=== PATIENT | female | born 1950 | race Caucasian/White ===

== ENCOUNTER → 2016-09-29 | Outpatient (REF) | payer MEDICARE, BC, OTHER | LOC: M SFHCPLAZ 16:57 | PROVIDERS: ATTEND Internal Medicine | DX: R30.0 Dysuria (principal); Z23 Encounter for immunization | CPT/HCPCS: 81001; 87086; 90732; G0009 ==

== ENCOUNTER → 2016-12-09 | Outpatient (CLI) | payer MEDICARE, BC, OTHER ==
--- NOTE | 2016-12-09 09:18 | REP ---
MAXILLOFACIAL CT WITHOUT CONTRAST: HISTORY: Subacute sinusitis. COMPARISON: 12/20/2009 The sinuses are clear. The osteomeatal units are patent. The middle and inferior nasal turbinates are partially paradoxical. There is haim bullosa of the left middle nasal turbinate. The cribriform plate, medial mendez of the orbits and optic canals are intact. The carotid canals form a segment of the posterolateral mendez of the sphenoid sinus. The sphenoid sinus septum inserts into the right internal carotid canal wall. IMPRESSION: There is no acute or chronic sinusitis. Signed by Teo Neely MD 12/09/2016 09:30 A
== END ==
LOC: M RAD 08:19
PROVIDERS: ATTEND Physician Assistant Medical
DX: J01.10 Acute frontal sinusitis, unspecified (principal)

== ENCOUNTER → 2016-12-15 | Outpatient (CLI) | payer MEDICARE, BC, OTHER ==
--- NOTE | 2016-12-15 10:54 | REP ---
Chest x-ray: Two views. History: Pneumonia. Comparison chest x-ray: August 15, 2014. Findings: The lungs are well inflated. No infiltrate is seen. Heart is borderline unchanged. Pleural angles are sharp. Pulmonary vasculature is not increased. There are degenerative changes in the thoracic spine. Impression: Borderline heart size. No infiltrate seen. Otherwise no active disease. Signed by Rolando Granda MD 12/15/2016 12:15 P
== END ==
LOC: M SMT 09:02
PROVIDERS: ATTEND Physician Assistant Medical
DX: J01.10 Acute frontal sinusitis, unspecified (principal); R31.1 Benign essential microscopic hematuria; R05 Cough; Z87.01 Personal history of pneumonia (recurrent)
CPT/HCPCS: 71020; 81002; G0463

== ENCOUNTER → 2017-01-05 | Outpatient (REF) | payer MEDICARE, BC, OTHER | LOC: M SFHCPLAZ 13:39 | PROVIDERS: ATTEND Physician Assistant Medical | DX: R31.0 Gross hematuria (principal) | CPT/HCPCS: 81001; 81002; 87086; G0463 ==

== ENCOUNTER → 2017-01-06 | Outpatient (CLI) | payer MEDICARE, BC, OTHER ==
--- NOTE | 2017-01-06 08:35 | REP ---
CT abdomen pelvis without IV or bowel contrast for gross hematuria. Comparison is 08/31/2001. There are no renal calculi. There is no hydronephrosis. However, there is a 3 mm calcification in the pelvis on the left. The ureter is obscured on the C O M unable to determine if this is a ureteral calculus or phlebolith. Given the clinical history consideration might be given to a CT urogram for follow up. The visualized lung lopes are unremarkable. The unenhanced hepatic parenchyma, gallbladder, pancreas, spleen, adrenals and abdominal aorta are unremarkable except for occasional calcified atheroma in the aorta. The bowel and mesentery are unremarkable. Pelvis: There is a calcification on the left as described. The uterus and adnexa are unremarkable. There is no ascites or adenopathy. There are calcifications in the subcutaneous tissues of the buttocks bilaterally, possibly injection granulomas. Impression: Calcification in the pelvis on the left as described. I cannot determine if this is an ureteral calculus or phlebolith. Consider a CT urogram to assist in this differentiation. Signed by Alpesh Diaz MD 01/06/2017 08:27 A
== END ==
LOC: M RAD 07:32
PROVIDERS: ATTEND Physician Assistant Medical
DX: R31.0 Gross hematuria (principal)

== ENCOUNTER → 2017-01-12 | Outpatient (CLI) | payer MEDICARE, BC, OTHER ==
[~2017-01-12] MED LIST: ISOVUE-370 76% 100ML VIAL (Q9967) As Ordered ONE
--- NOTE | 2017-01-12 09:43 | REP ---
CT of the abdomen pelvis without and with IV contrast, CT urogram, multiphase imaging: Comparison is a CT without IV contrast dated 01/12/2017. The small calcification identified in the pelvis on the left adjacent to the left acetabulum on the prior study can be seen as a phlebolith on the current CT urogram lateral to the distal left ureter. In addition, there is another tiny calcification medial to the distal left ureter not within the ureter, also a phlebolith. No ureteral calculi are identified. There is no hydronephrosis. There are no right ureteral calculi. No right hydronephrosis. There are no renal calculi on the right on the left. There are no renal masses or cysts. No bladder masses are identified. The hepatic parenchyma, gallbladder, pancreas and spleen are normal size and unremarkable. The adrenals, kidneys and abdominal aorta are unremarkable except for calcified atheroma in the aorta. The bowel and mesentery are unremarkable. Pelvis: The uterus and adnexa are unremarkable. There is no ascites or adenopathy. Half there are occasional sigmoid colon diverticula without diverticulitis. Calcifications are again identified in the subcutaneous fat of the buttocks bilaterally, likely injection granulomas Impression: There is no hydronephrosis. There are no renal or ureteral calculi. The calcifications identified on the comparison study are phleboliths adjacent to the distal left ureter. There are no renal or bladder masses. There is sigmoid colon diverticulosis without diverticulitis. Otherwise, negative CT of the abdomen and pelvis. Signed by Alpesh Diaz MD 01/12/2017 09:34 A
== END ==
LOC: M RAD 08:22
PROVIDERS: ATTEND Physician Assistant Medical
DX: R31.0 Gross hematuria (principal); K57.30 Diverticulosis of large intestine without perforation or abscess without bleeding
CPT/HCPCS: 74178; Q9967

== ENCOUNTER → 2017-01-25 | Outpatient (REF) | payer MEDICARE, BC, OTHER | LOC: M SMT 12:42 | PROVIDERS: ATTEND Nurse Practitioner Women's Health | DX: R31.0 Gross hematuria (principal) | CPT/HCPCS: 81001; 87086; 88108; G0463 ==

== ENCOUNTER → 2017-08-10 | Outpatient (CLI) | payer MEDICARE, BC, OTHER | LOC: M WUC 11:40 | DX: M53.9 Dorsopathy, unspecified (principal) | CPT/HCPCS: 72110 ==

== ENCOUNTER → 2017-09-06 | Outpatient (REF) | payer MEDICARE, BC, OTHER ==
[2017-09-06 17:20] LABS: APPEARANCE, URINE CLOUDY (CLEAR); BACTERIA, URINE AUTO 1+ (NEGATIVE); BILIRUBIN, URINE AUTO NEGATIVE (NEGATIVE); BLOOD, URINE BLOOD 1+ (NEGATIVE); COLOR, URINE YELLOW (YELLOW); GLUCOSE, URINE (UA) AUTO NEGATIVE (NEGATIVE); KETONE, URINE AUTO NEGATIVE (NEGATIVE); LEUKOCYTE ESTERASE, URINE AUTO 3+ (NEGATIVE); MUCUS, URINE SMALL (NEGATIVE); NITRITE, URINE AUTO NEGATIVE (NEGATIVE); PROTEIN, URINE AUTO NEGATIVE (NEGATIVE); RBC, URINE AUTO 14 /HPF (0-3); SPECIFIC GRAVITY URINE AUTO 1.012 (1.002-1.035); SQUAMOUS EPITHELIAL CELL UR AU 0 /HPF (0-6); UROBILINOGEN, URINE AUTO 0.2 mg/dL (0.0-2.0); WBC, URINE AUTO TNTC /HPF (0-3)
== END ==
LOC: M SFHCPLAZ 10:49
DX: R30.0 Dysuria (principal)
CPT/HCPCS: 81001

== ENCOUNTER 2017-11-16 10:50 | Day surgery (SDC) | payer MEDICARE, BC, OTHER ==
[~2017-11-16 10:50] MED LIST changes: -ISOVUE-370 76% 100ML VIAL (Q9967) As Ordered ONE; +LIDOCAINE 2% INJ 100 MG/5 ML SDV (FOR ANES.) As Ordered; +PROPOFOL 200 MG/20 ML VIAL As Ordered
[2017-11-16] MEDS: NS 1,000 ML IV (11:00)
== END 2017-11-16 12:57 | disposition home or self-care (01) ==
LOC: M OPP 10:50
DX: Z12.11 Encounter for screening for malignant neoplasm of colon (principal); Z86.010 Personal history of colon polyps; R00.8 Other abnormalities of heart beat; E78.5 Hyperlipidemia, unspecified; K21.9 Gastro-esophageal reflux disease without esophagitis; M06.9 Rheumatoid arthritis, unspecified; Z78.0 Asymptomatic menopausal state; Z92.21 Personal history of antineoplastic chemotherapy; Z88.8 Allergy status to other drugs, medicaments and biological substances; Z88.5 Allergy status to narcotic agent; Z79.82 Long term (current) use of aspirin; Z79.899 Other long term (current) drug therapy; Z79.52 Long term (current) use of systemic steroids
CPT/HCPCS: G0105

== ENCOUNTER → 2017-12-13 | Outpatient (CLI) | payer MEDICARE, BC, OTHER | LOC: M WUC 17:41 | DX: M19.041 Primary osteoarthritis, right hand (principal); M25.741 Osteophyte, right hand; R60.0 Localized edema; M79.644 Pain in right finger(s) | CPT/HCPCS: 73140 ==

== ENCOUNTER → 2018-11-23 | Outpatient (REF) | payer MEDICARE, BC, OTHER ==
[~2018-11-23] MED LIST changes: +ASPI81TA26 PO; +ATEN25TA PO; +BUDE0.5S6; +CITRTAB13 PO; +CRANCAP10 PO; +EPIP0.3I2; +FISH7.5C PO; +FLAX10005 PO; +FOLI1TAB11 PO; -LIDOCAINE 2% INJ 100 MG/5 ML SDV (FOR ANES.) As Ordered; +LIPI20TA PO; +MELA5TAB31 PO; +METH2.5T48; +MONT10TA2; +OMEP40CA2 PO; +OREN125I2; +PRED20TA; -PROPOFOL 200 MG/20 ML VIAL As Ordered; +REST0.05 OU; +SYST1SOL OU; +VITA100067 PO; +[UNRECOGNIZED DRUG - CODE]
[2018-11-23 17:13] LABS: APPEARANCE, URINE HAZY (CLEAR); BACTERIA, URINE AUTO 1+ (NEGATIVE); BILIRUBIN, URINE AUTO NEGATIVE (NEGATIVE); BLOOD, URINE BLOOD NEGATIVE (NEGATIVE); COLOR, URINE YELLOW (YELLOW); GLUCOSE, URINE (UA) AUTO NEGATIVE (NEGATIVE); KETONE, URINE AUTO NEGATIVE (NEGATIVE); LEUKOCYTE ESTERASE, URINE AUTO 2+ (NEGATIVE); MUCUS, URINE SMALL (NEGATIVE); NITRITE, URINE AUTO NEGATIVE (NEGATIVE); PROTEIN, URINE AUTO NEGATIVE (NEGATIVE); RBC, URINE AUTO 3 /HPF (0-3); SPECIFIC GRAVITY URINE AUTO 1.013 (1.002-1.035); SQUAMOUS EPITHELIAL CELL UR AU 1 /HPF (0-6); UROBILINOGEN, URINE AUTO 0.2 mg/dL (0.0-2.0); WBC, URINE AUTO 159 /HPF (0-3)
== END ==
LOC: M SFHCPLAZ 10:15
PROVIDERS: ATTEND Internal Medicine
DX: R30.0 Dysuria (principal)

== ENCOUNTER → 2019-01-28 | Outpatient (CLI) | payer MEDICARE, BC, OTHER ==
[~2019-01-28] MED LIST changes: -OMEP40CA2 PO; +OMEP40CA97 PO
--- NOTE | 2019-01-28 12:04 | REPVR ---
PROCEDURE INFORMATION: Exam: MR Lumbar Spine Without Contrast. Exam date and time: 01/28/2019 11:26 AM Clinical history: 68 years old, female; Low back pain; Patient HX: Per patient, has rheumatoid arthritis since 28 yrs of age, pain is increasing; Additional info: Sciatica TECHNIQUE: Imaging protocol: Multiplanar magnetic resonance images of the lumbar spine without intravenous contrast. COMPARISON: CR SPINE LS COMPLETE 08/10/2017 10:56 AM FINDINGS: Vertebrae: Unremarkable. Spinal cord: Normal signal. No cord compression. L1-L2: No significant disc disease. No significant spinal stenosis. L2-L3: There is mild disc bulging. L3-L4: There is minimal retrolisthesis at L3/4. There is mild disc bulging. There is a small superimposed right foraminal disc herniation. Disc bulging extends into both neural foramen causing mild bilateral neural foraminal narrowing, right worse than left. L4-L5: There is grade 1 anterior spondylolisthesis at L4/5. There is disc space narrowing and desiccation. There are moderate degenerative end plate changes at this level. There is moderate disc bulging. Disc bulging extends into both neural foramen causing moderate bilateral neural foraminal narrowing. There is a posterior annular tear. There is a small superimposed right foraminal disc herniation. There is facet arthropathy and ligamentum flavum hypertrophy. There is mild spinal canal stenosis. L5-S1: There is grade 1 anterior spondylolisthesis at L5/S1. There is disc space narrowing and desiccation. There are moderate degenerative end plate changes at this level. There is mild disc bulging. Soft tissues: Unremarkable. IMPRESSION: Multilevel degenerative changes causing variable degrees of spinal canal and neuroforaminal narrowing as described above. Please see details above. Electronically signed by: Kris Yusuf On 01/28/2019 12:03:58 PM
== END ==
LOC: M RAD 09:50
PROVIDERS: ATTEND Internal Medicine
DX: M54.30 Sciatica, unspecified side (principal)

== ENCOUNTER → 2019-02-02 | Outpatient (REF) | payer MEDICARE, BC, OTHER ==
[2019-02-02 13:31] LABS: APPEARANCE, URINE CLEAR (CLEAR); BACTERIA, URINE AUTO NEGATIVE (NEGATIVE); BILIRUBIN, URINE AUTO NEGATIVE (NEGATIVE); BLOOD, URINE BLOOD NEGATIVE (NEGATIVE); COLOR, URINE YELLOW (YELLOW); GLUCOSE, URINE (UA) AUTO NEGATIVE (NEGATIVE); KETONE, URINE AUTO NEGATIVE (NEGATIVE); LEUKOCYTE ESTERASE, URINE AUTO NEGATIVE (NEGATIVE); NITRITE, URINE AUTO NEGATIVE (NEGATIVE); PROTEIN, URINE AUTO NEGATIVE (NEGATIVE); RBC, URINE AUTO 1 /HPF (0-3); SPECIFIC GRAVITY URINE AUTO 1.008 (1.002-1.035); SQUAMOUS EPITHELIAL CELL UR AU 0 /HPF (0-6); UROBILINOGEN, URINE AUTO 0.2 mg/dL (0.0-2.0); WBC, URINE AUTO 2 /HPF (0-3)
== END ==
LOC: M SFHCPLAZ 10:51
PROVIDERS: ATTEND Internal Medicine
DX: R30.0 Dysuria (principal)

== ENCOUNTER → 2019-04-21 | Outpatient (CLI) | payer MEDICARE, BC, OTHER ==
--- NOTE | 2019-04-25 05:25 | ECWPNPC ---
PATIENT NAME: SETH TOMAS : 1950 GENDER: FEMALE VISIT DATE: 04/21/2019 DISCHARGE DATE: 04/21/19 1410 VISIT LOCKED DATE TIME: PHYSICIAN: JAVID SCANLON RESOURCE: JAVID SCANLON REASON FOR APPOINTMENT 1. RHEUMATOID ARTHRITIS/BACK PAINW/LEFT SCIATICA RADIATINGN TO HIPS HISTORY OF PRESENT ILLNESS PAIN SCREENING: PATIENT HAS A COMPLAINT OF ACUTE OR CHRONIC PAIN :YES 68-YEAR-OLD FEMALE IN FOR INITIAL PAIN CONSULT. SHE RATES HER PAIN CURRENTLY AT A 4 OUT OF 10 AND DESCRIBES IT ACHING, AND SHOOTING. WHEN ASKED SHE ADMITS TO BACK PAIN FOR THE PAST 7-8 YEARS SHE DENIES HISTORY OF TRAUMA BUT DOES ADMIT TO A HISTORY OF RHEUMATOID ARTHRITIS. FALL RISK SCREENING: SCREENING :NO FALLS REPORTED IN THE LAST YEAR CURRENT MEDICATIONS TAKING ASPIRIN 81 MG TABLET DELAYED RELEASE 1 TABLET ORALLY ONCE A DAY TAKING TRETINOIN 0.01 % GEL 1 APPLICATION TO AFFECTED AREA IN THE EVENING TO FACE EXTERNALLY ONCE A DAY TAKING VITAMIN D3 2000 UNIT CAPSULE 2 CAPSULE ORALLY ONCE A DAY TAKING FISH OIL 1000 MG CAPSULE 1 CAPSULE ORALLY ONCE A DAY TAKING FLAX SEED OIL 1000 MG CAPSULE 1 CAP ORALLY DAILY TAKING CRANBERRY 425 MG CAPSULE 1 CAPSULE WITH MEALS ORALLY TWICE A DAY TAKING EPIPEN 0.3 MG/0.3ML (1:1000) DEVICE 1 INJECTION INTRAMUSCULAR DAILY NEEDED TAKING MELATONIN 5 MG TABLET 1-2 TABLET AT BEDTIME NEEDED WITH FOOD ORALLY ONCE A DAY TAKING XIIDRA 5 % SOLUTION 1 DROP INTO AFFECTED EYE OPHTHALMIC TWICE A DAY TAKING SINGULAIR 10 MG TABLET 1 TABLET IN THE EVENING ORALLY ONCE A DAY TAKING MELOXICAM 15 MG TABLET 1 TABLET ORALLY ONCE A DAY TAKING FLONASE 50 MCG/ACT SUSPENSION 2 SPRAYS IN EACH NOSTRIL NASALLY ONCE A DAY, NOTES: PRN/TRAVEL TAKING AREDS OTC 2 TAB ORALLY DAILY TAKING LIPITOR 80 MG TABLET 1 TABLET ORALLY ONCE A DAY TAKING METHOTREXATE 2.5 MG TABLET 7 TABS ORALLY ONCE A WEEK TAKING ATENOLOL 25 MG TABLET 1 TABLET ORALLY ONCE A DAY TAKING FOLIC ACID 1 MG TABLET 1 TABLET ORALLY ONCE A DAY TAKING OMEPRAZOLE 40 MG CAPSULE DELAYED RELEASE 1 CAPSULE ORALLY ONCE A DAY TAKING PULMICORT 0.5 MG/2ML SUSPENSION 2 ML INHALATION TWICE DAILY MIXED WITH SALINE AND USED A NASAL RINSE TAKING XELJANZ 10 MG TABLET 1 TABLET ORALLY DAILY TAKING CALCIUM 600 MG TABLET 2 TABS ORALLY ONCE A DAY TAKING ASCORBIC ACID 1000 MG TABLET 1 TABLET ORALLY DAILY TAKING PREDNISONE 10 MG TABLET 1 TABLET ORALLY NEEDED THROUGH RHEUMATOLOGY NOT-TAKING LEVAQUIN 500 MG TABLET 1 TABLET ORALLY ONCE A DAY MEDICATION LIST REVIEWED AND RECONCILED WITH THE PATIENT PAST MEDICAL HISTORY ALLERGIC RHINITIS ASTHMA OSTEOPOROSIS RHEUMATOID ARTHRITIS HYPERCHOLESTEROLEMIA HISTORY OF ADENOMATOUS POLYP OF COLON DRY EYES ECTOPIC CARDIAC BEATS CHRONIC RECURRENT SINUSITIS ALLERGIES PROPOXYPHENE: PT UNAWARE - ALLERGY PRAVASTATIN: PT UNAWARE - ALLERGY CODEINE SULFATE: NAUSEA/VOMITING - ALLERGY SULFA (FOR ALLERGY USE ONLY): AFFECTS METHOTREXATE - ALLERGY BEE STINGS: ANAPHYLAXIS - ALLERGY MORPHINE SULFATE: NAUSEA/VOMITING - ALLERGY TRAMADOL HCL: NAUSEA/VOMITING - ALLERGY IV ANESTHESIA: NAUSEA/VOMITING - ALLERGY SURGICAL HISTORY BUNIONECTOMY 1984 RHEUMATOID NODULES REMOVED FROM HANDS, ARMS, AND FEET [id number] CESARIAN SECTION 1989 CERVICAL CERCLAGE 1989 SINUS SURGERY 1991 LEFT FOOT FUSION 1992 KNUCKLE REPLACEMENTS ON BOTH HANDS 1993 RIGHT SALPINGO-OOPHERECTOMY 2000 DEANGELO BULLOSA REMOVAL RIGHT SINUS 2001 LEFT THUMB TENDON SURGERY 2002 RIGHT FOOT SURGERY 2002 LEFT ANKLE SURGERY 01/2013 EYE LID SURGERY-DR. INGRAM 04/30/2015 COLONOSCOPY (ADENOMATOUS POLYP) AND EGD 12/2017 FAMILY HISTORY FATHER: MOTHER: ALIVE PATERNAL GRAND MOTHER: , DIAGNOSED WITH OTHER MALIGNANT NEOPLASM OF UNSPECIFIED SITE IN BLADDER 6 SISTER(S) . 1 SON(S) - HEALTHY. FATHER AT AGE 56 OF AN SC. MOTHER HAD HYPERTENSION. SIX SISTERS, ALIVE AND WELL. , ONEDIED AT , ONE HEALTHYMATERNAL UNCLES (2) RHEUMATOIDMOTHER HAD SKIN CANCER, UNSURE WHAT KINDNO FAMILY HX OF PANCREATIC CANCER. SOCIAL HISTORY GENERAL: TOBACCO USE ARE YOU A:NONSMOKER HIV / HEP-C SCREENING HIV TEST OFFERED TO PATIENT:YES DATE OFFERED:07/05/2017 TEST ACCEPTED:NO HEP-C TEST OFFERED TO PATIENT:YES DATE OFFERED:05/25/2016 REASON:PATIENT DECLINED TEST ACCEPTED:NO REASON:PATIENT DECLINED BROCHURE PROVIDED TO PATIENTYES HOUSING: OWNS HOME. EDUCATION LEVEL OF EDUCATION:COLLEGE LANGUAGE LANGUAGES SPOKEN:CHINESE DOMESTIC VIOLENCE STATUS: DO YOU FEEL SAFE IN YOUR ENVIRONMENT?YES BMI CARE GOAL FOLLOW-UP ABOVE NORMAL BMI FOLLOW-UPDIETARY MANAGEMENT EDUCATION, GUIDANCE, AND COUNSELING RECREATIONAL DRUG USE DRUG USE?NO LEARNING BARRIERS / SPECIAL NEEDS CHANGE FROM LAST VISIT?NO BARRIERS TO LEARNING?NO HEARING IMPAIRED?NO VISION IMPAIRED?YES COGNITIVELY IMPAIRED?NO :CORRECTIVE LENSES READINESS TO LEARN?YES LEARNING PREFERENCES?NO LEARNING CAPABILITIES PRESENT?YES EMOTIONAL BARRIERS?NO SPECIAL DEVICES?NO PARANORMAL INVESTIGATOR NEEDED?NO PAIN CLINIC PFS, CLERGY, PUBLIC HEALTH REFERRALS HAS THE PATIENT BEEN EDUCATED REGARDING HIS/HER PLAN OF CARE?YES HAS THE PATIENT BEEN EDUCATED REGARDING PAIN, THE RISK FOR PAIN, THE IMPORTANCE OF EFFECTIVE PAIN MANAGEMENT, AND THE PAIN ASSESSMENT PROCESS?YES LATEX QUESTIONNAIRE LATEX ALLERGY : HAVE YOU EVER DEVELOPED ANY TYPE OF REACTION AFTER HANDLING LATEX PRODUCTS SUCH RUBBER GLOVES, CONDOMS, DIAPHRAGMS, BALLOONS, SOCKS, OR UNDERWEAR?NO LATEX ALLERGY : HAVE YOU EVER DEVELOPED ANY TYPE OF REACTION DURING OR AFTER DENTAL APPOINTMENT, VAGINAL/RECTAL EXAMINATION, SURGICAL PROCEDURE, OR ANY OTHER EXPOSURE?NO LATEX RISK : HAVE YOU EVER HAD ANY DIFFICULTY BREATHING OR HIVES AFTER EATING OR HANDLING ANY FRUITS, OR VEGETABLES; SUCH KIWI, BANANAS, STONE FRUITS, OR CHESTNUTSNO LATEX RISK : DO YOU HAVE A PREVIOUS PERSONAL HISTORY OF MORE THAN NINE SURGERIES, SPINA BIFIDA, OR REPEATED CATHERIZATIONS? YES - PLEASE INDICATE : > 9 SURGERIES LATEX RISK : ARE YOU FREQUENTLY EXPOSED TO LATEX PRODUCTS IN YOUR OCCUPATION?NO DATE ASKED : 03/28/2019 CAFFEINE CAFFEINE USE?YES HOW OFTEN AND HOW MUCH? 2 CUPS OF COFFEE DAILY. ADVANCE DIRECTIVE ADVANCE DIRECTIVE DISCUSSED WITH PATIENT:YES PT HAS A HCP, -[place] TENRIISM NO SABIANISM BELIEFS THAT WOULD IMPACT HEALTH CARE. MARITAL STATUS: 1987. ALCOHOL SCREENING DID YOU HAVE A DRINK CONTAINING ALCOHOL IN THE PAST YEAR?YES HOW OFTEN DID YOU HAVE SIX OR MORE DRINKS ON ONE OCCASION IN THE PAST YEAR?NEVER (0 POINTS) HOW MANY DRINKS DID YOU HAVE ON A TYPICAL DAY WHEN YOU WERE DRINKING IN THE PAST YEAR?1 OR 2 (0 POINTS) HOW OFTEN DID YOU HAVE A DRINK CONTAINING ALCOHOL IN THE PAST YEAR?TWO TO FOUR TIMES A MONTH (2 POINTS) POINTS2 INTERPRETATIONNEGATIVE OCCUPATION: RETIRED FROM [employer] A PERSON[employer]EL [employer]S TECH--ON DISABILITY FOR RHEUMATOID ARTHRITIS, IN 1995. SEXUAL HX HAD SEX IN THE LAST 12 MONTHS (VAGINAL, ORAL, OR ANAL)?NO HAVE YOU EVER HAD AN STD?NO PRE-CONSULT DONE 04/14/19. EM. HOSPITALIZATION/MAJOR DIAGNOSTIC PROCEDURE FOR SURGERIES REVIEW OF SYSTEMS REVIEWED BY: PROVIDER: SADE SAMANIEGO-Toshia . CONSTITUTIONAL: ANY CHANGE IN YOUR MEDICAL CONDITION? NO . CHILLS NO . FEVER NO . INFECTION: DO YOU HAVE NEW INFECTIONS? NO . DO YOU HAVE HISTORY OF MRSA? NO . MUSCULOSKELETAL: ANY NEW PATTERNS OF PAIN OR NUMBNESS? NO . SYTEMIC LUPUS NO . GASTROENTEROLOGY: ANY NEW CHANGE IN BOWEL CONTROL? NO . BARRETTS ESOPHAGUS NO . CIRRHOSIS NO . HEPATITIS NO . LIVER FAILURE NO . ACID REFLUX HISTORY OF A "SLIDING HIATAL HERNIA" . UNEXPLAINED WEIGHT LOSS NO . GENITOURINARY: ANY NEW CHANGE IN BLADDER CONTROL? NO . IS THERE A CHANCE YOU COULD BE ? NO . HEMATOLOGY/LYMPH: DO YOU TAKE ANY BLOOD THINNERS? (FOR EXAMPLE- COUMADIN, PLAVIX, AGGRENOX, PLATEL, PRADAXA, OR XARELTO) ASPIRIN . WHEN WAS YOUR LAST DOSE? DATE: TIME: . LOW PLATELET COUNT NO . SICKLE CELL DISEASE NO . VON WILLIEBRANDS NO . FACTOR V LEIDEN NO . THALLASEMIA NO . ANEMIA NO . EASY BRUISING NO . NEUROLOGY: HAVE YOU FALLEN IN THE PAST 12 MONTHS? NO . ANY NEW EXTREMITY NUMBNESS OR WEAKNESS? NO . HEAD INJURY NO . DEMENTIA NO . CEREBRAL PALSY NO . MULTIPLE SCLEROSIS NO . DIZZINESS NO . HEADACHE NO . STROKES NO . VERTIGO NO . CARDIOLOGY: DO YOU HAVE A PACEMAKER OR DEFIBRILLATOR? NO . ANGINA NO . HEART ATTACK NO . HEART SURGERY NO . CONGESTIVE HEART FAILURE/FLUID OVERLOAD NO . CHEST PAIN NO . HIGH BLOOD PRESSURE NO . IRREGULAR HEART BEAT NO . RESPIRATORY: HAVE YOU BEEN SICK IN THE PAST WEEK? NO . FEVER NO . FLU LIKE SYMPTOMS? NO . CPAP NO . BYPAP NO . ASTHMA YES . EMPHYSEMA NO . CHRONIC LUNG DISEASES NO . SHORTNESS OF BREATH ON EXERTION NO . COUGH NO . SNORING NO . INTEGUMENTARY: DO YOU HAVE ANY RASHES OR OPEN SORES? YES LEFT ELBOW . ALLERGIC/IMMUNO: ARE YOU ALLERGIC TO IV DYE? NO . ANY NEW ALLERGIES? NO . PSYCHIATRIC: DO YOU HAVE THOUGHTS OF HURTING YOURSELF OR SOMEONE ELSE? NO . ARE YOU ABUSED, NEGLECTED, OR IN AN UNSAFE ENVIRONMENT? NO . ENDOCRINOLOGY: ARE YOU DIABETIC? NO . THYROID DISORDER NO . OTHER: DO YOU NEED ANY PRESCRIPTIONS? NO . IF YES, PLEASE LIST: ____ . ANY NEW PROBLEMS WITH YOUR MEDICATIONS? NO . WHEN DID YOU LAST EAT? ____ . WHEN DID YOU LAST DRINK? ____ . WHAT DID YOU LAST DRINK? ____ . NAME OF PERSON DRIVING YOU HOME? ____ . DO YOU HAVE ANY OTHER QUESTIONS OR CONCERNS NO . VITAL SIGNS WT 177.4 LBS, HT 62 IN, BMI 32.44 INDEX, BP 168/86 MANUAL, HR 57 /MIN, RR 18 /MIN, TEMP 97.0 F, OXYGEN SAT % 98%, SAFE IN ENV? (Y/N) YES, NA INITIALS JS, REVIEWED BY: GEOVANNA. EXAMINATION GENERAL EXAMINATION: GENERALNO ACUTE DISTRESS, WELL NOURISHED AND HYDRATED. PSYCHAPPROPRIATE MOOD AND AFFECT . LUNGS:CLEAR TO AUSCULTATION BILATERALLY, NO WHEEZES, RHONCHI, RALES. HEART:NO MURMURS, REGULAR RATE AND RHYTHM. BACK:POINT TENDER ALONG LUMBAR SPINE, SURROUNDING SKIN SHOWS NO ERYTHEMA, ECCHYMOSIS, INCREASED WARMTH, AND/OR SKIN ERUPTIONS NOTED. . MUSCULOSKELETAL:EQUAL STRENGTH OF LOWER EXTREMITIES BILATERALLY . ASSESSMENTS INTERVERTEBRAL DISC DISORDER WITH RADICULOPATHY OF LUMBAR REGION - M51.16 (PRIMARY) TREATMENT INTERVERTEBRAL DISC DISORDER WITH RADICULOPATHY OF LUMBAR REGION NOTES: LESI L4-L5 L5-S1. CLINICAL NOTES: 68-YEAR-OLD FEMALE IN FOR INITIAL PAIN CONSULT. DISCUSSED MEDICATIONS WITH PATIENT AND SHE DECLINES THEM AT THIS TIME. GIVEN PRESENTING SYMPTOMS AND RESULTS OF PHYSICAL EXAMINATION RECOMMENDED LESI L4-L5 L5-S1 WITH POST PROCEDURAL FOLLOW-UP. PATIENT HAS EXPRESSED UNDERSTANDING OF AND WAS IN AGREEMENT WITH TREATMENT PLAN. GIVEN TIME TO ASK QUESTIONS AND EXPRESS CONCERNS. PREVENTIVE MEDICINE PAIN CLINIC TEACHING: PROCEDURE TEACHING INFORMATION HANDOUT FOR LUMBAR EPIDURAL STEROID INJECTION PRINTED AND REVIEWED WITH PATIENT. PATIENT ON METHOTREXATE AND XELJANZ, WILL DISCUSS WITH DR. ESCOBEDO AND SEND A REQUEST TO HOLD MEDS PER HIS INSTRUCTIONS. 04/21/2019 PROCEDURE CODES FA211 ESTABILISHED PATIENT [facility] CHARGE DISPOSITION & COMMUNICATION FOLLOW UP POSTPROCEDURE (REASON: LESI L4-L5 L5-S1) ELECTRONICALLY SIGNED BY DANETTE MUHAMMAD ON 04/24/2019 AT 08:34 AM EST DISCLAIMER : THIS IS A VISIT SUMMARY EXTRACTED FROM THE [employer] CHART. IT IS NOT A COPY OF THE [employer] PROGRESS NOTE. ARID
== END ==
LOC: M PAIN 13:00
PROVIDERS: ATTEND Family Medicine
DX: M51.16 Intervertebral disc disorders with radiculopathy, lumbar region (principal)

== ENCOUNTER → 2019-05-30 | Outpatient (REF) | payer MEDICARE, BC, OTHER ==
[~2019-05-30] MED LIST changes: -CITRTAB13 PO; +CITRTAB16 PO; -MONT10TA2; +MONT10TA4
== END ==
LOC: M LAB REF 09:29
PROVIDERS: ATTEND Dermatology
DX: D23.21 Other benign neoplasm of skin of right ear and external auricular canal (principal)

== ENCOUNTER → 2019-07-03 | Outpatient (CLI) | payer MEDICARE, BC, OTHER ==
[~2019-07-03] MED LIST changes: +ISOVUE-M 300 61% 15ML VIAL (Q9967) As Ordered ONE; +LIDOCAINE 1% SDV INJ 30 ML VIAL As Ordered ONE; +methylPREDNISolone SUSP 40 MG/ML (DEPO-medrol) VIAL (J1030) As Ordered ONE
--- NOTE | 2019-07-03 12:40 | REP ---
Partial lumbar spine series: Three views . History: Injection procedure for pain. 15 seconds of fluoroscopy time is reported. Findings: A sequence of three fluoroscopically obtained last image hold procedural spot radiographs of the lumbar spine document needle position and contrast injection associated with injection procedure. Electronically Signed by Rolando Granda MD 07/03/2019 12:31 P
--- NOTE | 2019-07-14 04:07 | ECWPNPC ---
PATIENT NAME: SETH TOMAS : 1950 GENDER: FEMALE VISIT DATE: 07/03/2019 DISCHARGE DATE: 07/03/19 1257 VISIT LOCKED DATE TIME: PHYSICIAN: KIRTI ESCOBEDO MD RESOURCE: KIRTI ESCOBEDO MD REASON FOR APPOINTMENT 1. LESI L5-S1 HISTORY OF PRESENT ILLNESS HISTORY OF PRESENT ILLNESS: PAIN THE PATIENT DESCRIBES THE PAIN... FALL RISK SCREENING: SCREENING :NO FALLS REPORTED IN THE LAST YEAR CURRENT MEDICATIONS TAKING ASPIRIN 81 MG TABLET DELAYED RELEASE 1 TABLET ORALLY ONCE A DAY, NOTES: 06/30/19 TAKING TRETINOIN 0.01 % GEL 1 APPLICATION TO AFFECTED AREA IN THE EVENING TO FACE EXTERNALLY ONCE A DAY, NOTES: 07/02/192199 TAKING VITAMIN D3 2000 UNIT CAPSULE 2 CAPSULE ORALLY ONCE A DAY, NOTES: 07/03/19799 TAKING FISH OIL 1000 MG CAPSULE 1 CAPSULE ORALLY ONCE A DAY, NOTES: 07/03/19799 TAKING FLAX SEED OIL 1000 MG CAPSULE 1 CAP ORALLY DAILY, NOTES: 07/03/19799 TAKING EPIPEN 0.3 MG/0.3ML (1:1000) DEVICE 1 INJECTION INTRAMUSCULAR DAILY NEEDED, NOTES: NONE RECENTLY TAKING MELATONIN 5 MG TABLET 1-2 TABLET AT BEDTIME NEEDED WITH FOOD ORALLY ONCE A DAY, NOTES: 07/02/192199 TAKING XIIDRA 5 % SOLUTION 1 DROP INTO AFFECTED EYE OPHTHALMIC TWICE A DAY, NOTES: 07/03/19799 TAKING SINGULAIR 10 MG TABLET 1 TABLET IN THE EVENING ORALLY ONCE A DAY, NOTES: 07/02/192199 TAKING MELOXICAM 15 MG TABLET 1 TABLET ORALLY ONCE A DAY, NOTES: 07/03/19799 TAKING FLONASE 50 MCG/ACT SUSPENSION 2 SPRAYS IN EACH NOSTRIL NASALLY ONCE A DAY, NOTES: NONE RECENTLY PRN/TRAVEL TAKING AREDS OTC 2 TAB ORALLY DAILY, NOTES: 07/03/19799 TAKING LIPITOR 80 MG TABLET 1 TABLET ORALLY ONCE A DAY, NOTES: 07/02/192199 TAKING METHOTREXATE 2.5 MG TABLET 7 TABS ORALLY ONCE A WEEK, NOTES: 06/21/19 TAKING ATENOLOL 25 MG TABLET 1 TABLET ORALLY ONCE A DAY, NOTES: 07/03/19799 TAKING FOLIC ACID 1 MG TABLET 1 TABLET ORALLY ONCE A DAY, NOTES: 3/16/20 0800 TAKING OMEPRAZOLE 40 MG CAPSULE DELAYED RELEASE 1 CAPSULE ORALLY ONCE A DAY, NOTES: 07/05/19 0800 TAKING PULMICORT 0.5 MG/2ML SUSPENSION 2 ML INHALATION TWICE DAILY MIXED WITH SALINE AND USED A NASAL RINSE, NOTES: NONE RECENTLY TAKING XELJANZ 10 MG TABLET 1 TABLET ORALLY DAILY, NOTES: 06/29/19 TAKING CALCIUM 600 MG TABLET 2 TABS ORALLY ONCE A DAY, NOTES: 07/02/19 0800 TAKING ASCORBIC ACID 1000 MG TABLET 1 TABLET ORALLY DAILY, NOTES: 07/02/19 08 TAKING BUDESONIDE 0.5 MG/2ML SUSPENSION 2 ML INHALATION ONCE A DAY, NOTES: 07/03/19 0800 TAKING PREDNISONE 20 MG TABLET DIRECTED ORALLY TAKE 2 TABS ONCE DAILY FOR 3 DAYS THEN 1 TAB ONCE DAILY FOR 5 DAYS, NOTES: MORE THAN 2 WEEKS AGO NOT-TAKING AMOXICILLIN-POT CLAVULANATE 875-125 MG TABLET 1 TABLET ORALLY EVERY 12 HRS NOT-TAKING KEFLEX 500 MG CAPSULE 1 CAPSULE ORALLY EVERY 12 HRS NOT-TAKING LEVAQUIN 500 MG TABLET 1 TABLET ORALLY ONCE A DAY NOT-TAKING CRANBERRY 425 MG CAPSULE 1 CAPSULE WITH MEALS ORALLY TWICE A DAY MEDICATION LIST REVIEWED AND RECONCILED WITH THE PATIENT PAST MEDICAL HISTORY ALLERGIC RHINITIS ASTHMA OSTEOPOROSIS RHEUMATOID ARTHRITIS HYPERCHOLESTEROLEMIA HISTORY OF ADENOMATOUS POLYP OF COLON DRY EYES ECTOPIC CARDIAC BEATS CHRONIC RECURRENT SINUSITIS ALLERGIES PROPOXYPHENE: PT UNAWARE - ALLERGY PRAVASTATIN: PT UNAWARE - ALLERGY CODEINE SULFATE: NAUSEA/VOMITING - ALLERGY SULFA (FOR ALLERGY USE ONLY): AFFECTS METHOTREXATE - ALLERGY BEE STINGS: ANAPHYLAXIS - ALLERGY MORPHINE SULFATE: NAUSEA/VOMITING - ALLERGY TRAMADOL HCL: NAUSEA/VOMITING - ALLERGY IV ANESTHESIA: NAUSEA/VOMITING - ALLERGY SURGICAL HISTORY BUNIONECTOMY 1985 RHEUMATOID NODULES REMOVED FROM HANDS, ARMS, AND FEET [phone] CESARIAN SECTION 1989 CERVICAL CERCLAGE 1990 SINUS SURGERY 1991 LEFT FOOT FUSION 1992 KNUCKLE REPLACEMENTS ON BOTH HANDS 1993 RIGHT SALPINGO-OOPHERECTOMY 1999 DEANGELO BULLOSA REMOVAL RIGHT SINUS 2002 LEFT THUMB TENDON SURGERY 2002 RIGHT FOOT SURGERY 2002 LEFT ANKLE SURGERY 01/2013 EYE LID SURGERY-DR. INGRAM 04/30/2015 COLONOSCOPY (ADENOMATOUS POLYP) AND EGD 12/2017 FAMILY HISTORY FATHER: MOTHER: ALIVE SIBLINGS: ALIVE, SISTER HAS CONGESTIVE HEART FAILURE PATERNAL GRAND MOTHER: , DIAGNOSED WITH OTHER MALIGNANT NEOPLASM OF UNSPECIFIED SITE IN BLADDER 6 SISTER(S) . 1 SON(S) - HEALTHY. FATHER AT AGE 56 OF AN [place]. MOTHER HAD HYPERTENSION. SIX SISTERS, ALIVE AND WELL. , ONEDIED AT , ONE HEALTHYMATERNAL UNCLES (2) RHEUMATOIDMOTHER HAD SKIN CANCER, UNSURE WHAT KINDNO FAMILY HX OF PANCREATIC CANCER. SOCIAL HISTORY GENERAL: TOBACCO USE ARE YOU A:NONSMOKER HIV / HEP-C SCREENING HIV TEST OFFERED TO PATIENT:YES DATE OFFERED:07/05/2017 TEST ACCEPTED:NO HEP-C TEST OFFERED TO PATIENT:YES DATE OFFERED:05/25/2016 REASON:PATIENT DECLINED TEST ACCEPTED:NO REASON:PATIENT DECLINED BROCHURE PROVIDED TO PATIENTYES HOUSING: OWNS HOME. EDUCATION LEVEL OF EDUCATION:COLLEGE LANGUAGE LANGUAGES SPOKEN:[place] DOMESTIC VIOLENCE STATUS: DO YOU FEEL SAFE IN YOUR ENVIRONMENT?YES BMI CARE GOAL FOLLOW-UP ABOVE NORMAL BMI FOLLOW-UPDIETARY MANAGEMENT EDUCATION, GUIDANCE, AND COUNSELING RECREATIONAL DRUG USE DRUG USE?NO LEARNING BARRIERS / SPECIAL NEEDS CHANGE FROM LAST VISIT?NO BARRIERS TO LEARNING?NO HEARING IMPAIRED?NO VISION IMPAIRED?YES COGNITIVELY IMPAIRED?NO :CORRECTIVE LENSES READINESS TO LEARN?YES LEARNING PREFERENCES?NO LEARNING CAPABILITIES PRESENT?YES EMOTIONAL BARRIERS?NO SPECIAL DEVICES?NO TOOL AND DIE INSPECTOR NEEDED?NO PAIN CLINIC PFS, CLERGY, PUBLIC HEALTH REFERRALS HAS THE PATIENT BEEN EDUCATED REGARDING HIS/HER PLAN OF CARE?YES HAS THE PATIENT BEEN EDUCATED REGARDING PAIN, THE RISK FOR PAIN, THE IMPORTANCE OF EFFECTIVE PAIN MANAGEMENT, AND THE PAIN ASSESSMENT PROCESS?YES LATEX QUESTIONNAIRE LATEX ALLERGY : HAVE YOU EVER DEVELOPED ANY TYPE OF REACTION AFTER HANDLING LATEX PRODUCTS SUCH RUBBER GLOVES, CONDOMS, DIAPHRAGMS, BALLOONS, SOCKS, OR UNDERWEAR?NO LATEX ALLERGY : HAVE YOU EVER DEVELOPED ANY TYPE OF REACTION DURING OR AFTER DENTAL APPOINTMENT, VAGINAL/RECTAL EXAMINATION, SURGICAL PROCEDURE, OR ANY OTHER EXPOSURE?NO DATE ASKED : 03/28/2019 LATEX RISK : HAVE YOU EVER HAD ANY DIFFICULTY BREATHING OR HIVES AFTER EATING OR HANDLING ANY FRUITS, OR VEGETABLES; SUCH KIWI, BANANAS, STONE FRUITS, OR CHESTNUTSNO LATEX RISK : DO YOU HAVE A PREVIOUS PERSONAL HISTORY OF MORE THAN NINE SURGERIES, SPINA BIFIDA, OR REPEATED CATHERIZATIONS? YES - PLEASE INDICATE : > 9 SURGERIES LATEX RISK : ARE YOU FREQUENTLY EXPOSED TO LATEX PRODUCTS IN YOUR OCCUPATION?NO CAFFEINE CAFFEINE USE?YES HOW OFTEN AND HOW MUCH? 2 CUPS OF COFFEE DAILY. ADVANCE DIRECTIVE ADVANCE DIRECTIVE DISCUSSED WITH PATIENT:YES PT HAS A HCP, -TAWANA TEMPLE NO BUDDHISM BELIEFS THAT WOULD IMPACT HEALTH CARE. MARITAL STATUS: 1987. 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 SEXUAL HX HAD SEX IN THE LAST 12 MONTHS (VAGINAL, ORAL, OR ANAL)?NO HAVE YOU EVER HAD AN STD?NO PRE-CONSULT DONE 04/14/19. EMPRE PROCEDURE COMPLETED 04-27-19 MEDICATIONS CLARIFIED KGULLO. HOSPITALIZATION/MAJOR DIAGNOSTIC PROCEDURE FOR SURGERIES REVIEW OF SYSTEMS REVIEWED BY: PROVIDER: . CONSTITUTIONAL: ANY CHANGE IN YOUR MEDICAL CONDITION? NO . CHILLS NO . FEVER NO . INFECTION: DO YOU HAVE NEW INFECTIONS? NO . DO YOU HAVE HISTORY OF MRSA? NO . MUSCULOSKELETAL: ANY NEW PATTERNS OF PAIN OR NUMBNESS? YES . GASTROENTEROLOGY: ANY NEW CHANGE IN BOWEL CONTROL? NO . GENITOURINARY: ANY NEW CHANGE IN BLADDER CONTROL? NO . IS THERE A CHANCE YOU COULD BE ? NO . HEMATOLOGY/LYMPH: DO YOU TAKE ANY BLOOD THINNERS? (FOR EXAMPLE- COUMADIN, PLAVIX, AGGRENOX, PLATEL, PRADAXA, OR XARELTO) NO . WHEN WAS YOUR LAST DOSE? DATE: TIME: . NEUROLOGY: HAVE YOU FALLEN IN THE PAST 12 MONTHS? NO . ANY NEW EXTREMITY NUMBNESS OR WEAKNESS? NO . CARDIOLOGY: DO YOU HAVE A PACEMAKER OR DEFIBRILLATOR? NO . RESPIRATORY: HAVE YOU BEEN SICK IN THE PAST WEEK? NO . FEVER NO . FLU LIKE SYMPTOMS? NO . COUGH NO . INTEGUMENTARY: DO YOU HAVE ANY RASHES OR OPEN SORES? NO . ALLERGIC/IMMUNO: ARE YOU ALLERGIC TO IV DYE? NO . ANY NEW ALLERGIES? NO . PSYCHIATRIC: DO YOU HAVE THOUGHTS OF HURTING YOURSELF OR SOMEONE ELSE? NO . ARE YOU ABUSED, NEGLECTED, OR IN AN UNSAFE ENVIRONMENT? NO . ENDOCRINOLOGY: ARE YOU DIABETIC? NO . OTHER: DO YOU NEED ANY PRESCRIPTIONS? NO . IF YES, PLEASE LIST: ____ . ANY NEW PROBLEMS WITH YOUR MEDICATIONS? NO . WHEN DID YOU LAST EAT? 07/02/19 2100 . WHEN DID YOU LAST DRINK? 07/03/19 0800 . WHAT DID YOU LAST DRINK? WATER . NAME OF PERSON DRIVING YOU HOME? TAWANA TOMAS . DO YOU HAVE ANY OTHER QUESTIONS OR CONCERNS NO . VITAL SIGNS WT 177.0 LBS, HT 62 IN, BMI 32.37 INDEX, BP 150/80 MANUAL, HR 70 /MIN, RR 18 /MIN, TEMP 97.6 F, OXYGEN SAT % 96%, NA INITIALS AW 1030, REVIEWED BY: LS. ASSESSMENTS INTERVERTEBRAL DISC DISORDERS WITH RADICULOPATHY, LUMBOSACRAL REGION - M51.17 (PRIMARY) PROCEDURES PRE PROCEDURE DIAGNOSIS LUMBOSACRAL SPINAL STENOSIS, LUMBOSACRAL DISC DISORDER WITH RADICULOPATHY POST PROCEDURE DIAGNOSIS LUMBOSACRAL SPINAL STENOSIS, LUMBOSACRAL DISC DISORDER WITH RADICULOPATHY PROCEDURE LUMBAR EPIDURAL STEROID INJECTION UNDER FLUOROSCOPIC GUIDANCE SURGEON DR. KIRTI ESCOBEDO SUPPLY AND DISTRIBUTION MANAGER NONE ANESTHESIA LOCAL PRE PROCEDURE NOTE THE PATIENT HAS A HISTORY OF CHRONIC LOW BACK PAIN. I EVALUATED THE PATIENT AND REVIEWED THE CHART. I WENT OVER THE RISKS, ALTERNATIVES, AND BENEFITS ASSOCIATED WITH THIS PROCEDURE. THE PATIENT WOULD LIKE TO PROCEED AND GIVE CONSENT TO PERFORMED THE PROCEDURE. THE PATIENT DENIES UNEXPLAINABLE WEIGHT LOSS, FEVER, CHILLS, OR NEW CHANGES IN URINARY OR BOWEL CONTROL. DESCRIPTION OF PROCEDURE THE PATIENT WAS BROUGHT TO THE PROCEDURE ROOM AND PLACED IN THE PRONE POSITION. THE LUMBOSACRAL AREA WAS CLEANED WITH BETADINE SOLUTION AND DRAPED ASEPTICALLY. THE PROCEDURE WAS DONE UNDER STERILE CONDITIONS. I CHECKED LATERALITY AND THE LEVEL WHERE THE PROCEDURE WAS GOING TO BE PERFORMED WITH THE PATIENT AND THE SUPPORTING STAFF AT THE MOMENT OF THE TIME OUT IN THE PROCEDURE ROOM. UNDER FLUOROSCOPIC GUIDANCE, THE TARGET POINT WAS SELECTED AT THE INTERLAMINAR LEVEL OF L5-S1. LIDOCAINE WAS USED TO NUMB THE SKIN AND THE SUBCUTANEOUS TISSUE BELOW IT. EPIDURAL TUOHY NEEDLE, 17-GAUGE, WAS ADVANCED UNDER FLUOROSCOPIC GUIDANCE AND FOLLOWING PATIENT FEEDBACK UNTIL THE EPIDURAL SPACE WAS REACHED, 7 CM DEEP INTO THE SKIN BY THE LOSS OF RESISTANCE TECHNIQUE. ISOVUE M DYE 30%, 0.25 ML, WAS INJECTED SHOWING ADEQUATE SPREAD OF THE DYE. THEN, A SOLUTION OF 3 ML OF NORMAL SALINE WITH DEPO-MEDROL 60 MG WAS INJECTED SLOWLY FOLLOWING PATIENT FEEDBACK. THERE WAS NO EVIDENCE OF BLOOD, PARESTHESIA OR CEREBROSPINAL FLUID DURING THE PROCEDURE. THE PATIENT WAS SENT TO THE RECOVERY ROOM. THE PATIENT WAS MOVING THE EXTREMITIES AND DOING WELL. THERE WAS NO COMPLICATION DURING THE PROCEDURE. FLUOROSCOPY TIME WAS 15 SECONDS. POST PROCEDURE NOTE THE PATIENT WILL BE SEEN IN A FOLLOW UP IN THE NEXT FEW WEEKS. I AM LOOKING FOR LONG LASTING PAIN RELIEF FOR THE PATIENT WITH THIS INJECTION. DEPENDING ON THE EPIDURAL RESULTS, I MAY CONSIDER PERFORMING A LUMBAR EPIDURAL AT L4-L5 FOR THE PATIENT IN THE FUTURE. INSTRUCTIONS WERE GIVEN, QUESTIONS WERE ANSWERED, AND THE PATIENT EXPRESSED UNDERSTANDING AND AGREES WITH THE PLAN. I, [place], DOCUMENTED THE ABOVE INFORMATION ACTING A SCRIBE FOR DR. ESCOBEDO. I HAVE REVIEWED THE ABOVE DOCUMENT, WRITTEN BY SENA DORSEY AND I VERIFY THAT IT IS ACCURATE. DIAGNOSTIC IMAGING [facility] FLUORO GUIDE SPINE INJECTION (PAIN)[id number] PROCEDURE CODES 56221 LUMBAR/SACRAL W/ IMAGING 6045F RADXPS IN END [id number] PXD DISPOSITION & COMMUNICATION FOLLOW UP 2 WEEKS ELECTRONICALLY SIGNED BY KIRTI ESCOBEDO MD, MD ON 07/13/2019 AT 10:07 AM EDT DISCLAIMER : THIS IS A VISIT SUMMARY EXTRACTED FROM THE [employer] CHART. IT IS NOT A COPY OF THE [employer] PROGRESS NOTE. DAYDAY
== END ==
LOC: M PAIN 10:00
PROVIDERS: ATTEND Anesthesiology
DX: M51.17 Intervertebral disc disorders with radiculopathy, lumbosacral region (principal)
CPT/HCPCS: 62323; J1030; Q9967

== ENCOUNTER → 2019-07-17 | Outpatient (CLI) | payer MEDICARE, BC, OTHER ==
[~2019-07-17] MED LIST changes: -ISOVUE-M 300 61% 15ML VIAL (Q9967) As Ordered ONE; -LIDOCAINE 1% SDV INJ 30 ML VIAL As Ordered ONE; -methylPREDNISolone SUSP 40 MG/ML (DEPO-medrol) VIAL (J1030) As Ordered ONE
--- NOTE | 2019-07-19 03:17 | ECWPNPC ---
PATIENT NAME: SETH TOMAS : 1950 GENDER: FEMALE VISIT DATE: 07/17/2019 DISCHARGE DATE: 07/17/19 1117 VISIT LOCKED DATE TIME: PHYSICIAN: JAVID SCANLON RESOURCE: JAVID SCANLON REASON FOR APPOINTMENT 1. POST LESI HISTORY OF PRESENT ILLNESS HISTORY OF PRESENT ILLNESS: PAIN THE PATIENT DESCRIBES THE PAINAFTER THE PROCEDURE SEVERITY - PAIN SCORE OF3/10 LOCATIONSLOWER BACK, RIGHT LEG QUALITYSORE DURATIONCONTINUOUS, CONSTANT, ALL DAY, MAINLY DURING THE DAY, AWAKENS FROM SLEEEP PAIN IS INCREASED BY:ACTIVITIES WALKING, WORSE WHEN SITTING PERMISSION REQUESTED AND RECEIVED FROM PATIENT TO PERFORM TELEHEALTH VISIT. 68-YEAR-OLD FEMALE IN FOR POST LESI FOLLOW-UP. PATIENT FEELS THE PROCEDURE WAS HELPFUL RATING HER PAIN PREPROCEDURE AT A 4/10 AND POSTPROCEDURE AT A 3 OUT OF 10. SHE FURTHER STATES THE PAIN IN HER LEFT LEG HAS COMPLETELY RESOLVED SINCE PROCEDURE. SHE RATES HER PAIN CURRENTLY AT A 3 OUT OF 10 AND DESCRIBES IT SORE. FALL RISK SCREENING: SCREENING :NO FALLS REPORTED IN THE LAST YEAR CURRENT MEDICATIONS TAKING ASPIRIN 81 MG TABLET DELAYED RELEASE 1 TABLET ORALLY ONCE A DAY, NOTES: 06/30/19 TAKING TRETINOIN 0.01 % GEL 1 APPLICATION TO AFFECTED AREA IN THE EVENING TO FACE EXTERNALLY ONCE A DAY, NOTES: 07/02/192199 TAKING VITAMIN D3 2000 UNIT CAPSULE 2 CAPSULE ORALLY ONCE A DAY, NOTES: 07/03/19799 TAKING FISH OIL 1000 MG CAPSULE 1 CAPSULE ORALLY ONCE A DAY, NOTES: 07/03/19799 TAKING FLAX SEED OIL 1000 MG CAPSULE 1 CAP ORALLY DAILY, NOTES: 07/03/19799 TAKING EPIPEN 0.3 MG/0.3ML (1:1000) DEVICE 1 INJECTION INTRAMUSCULAR DAILY NEEDED, NOTES: NONE RECENTLY TAKING MELATONIN 5 MG TABLET 1-2 TABLET AT BEDTIME NEEDED WITH FOOD ORALLY ONCE A DAY, NOTES: 07/02/192199 TAKING XIIDRA 5 % SOLUTION 1 DROP INTO AFFECTED EYE OPHTHALMIC TWICE A DAY, NOTES: 07/03/19799 TAKING FLONASE 50 MCG/ACT SUSPENSION 2 SPRAYS IN EACH NOSTRIL NASALLY ONCE A DAY, NOTES: NONE RECENTLY PRN/TRAVEL TAKING AREDS OTC 2 TAB ORALLY DAILY, NOTES: 3/16/20 0800 TAKING LIPITOR 80 MG TABLET 1 TABLET ORALLY ONCE A DAY, NOTES: 07/02/19 2200 TAKING METHOTREXATE 2.5 MG TABLET 7 TABS ORALLY ONCE A WEEK, NOTES: 06/21/19 TAKING ATENOLOL 25 MG TABLET 1 TABLET ORALLY ONCE A DAY, NOTES: 07/03/19 0800 TAKING FOLIC ACID 1 MG TABLET 1 TABLET ORALLY ONCE A DAY, NOTES: 07/03/19 08 TAKING OMEPRAZOLE 40 MG CAPSULE DELAYED RELEASE 1 CAPSULE ORALLY ONCE A DAY, NOTES: 07/05/19 08 TAKING XELJANZ 10 MG TABLET 1 TABLET ORALLY DAILY, NOTES: 06/29/19 TAKING CALCIUM 600 MG TABLET 2 TABS ORALLY ONCE A DAY, NOTES: 07/02/19 08 TAKING ASCORBIC ACID 1000 MG TABLET 1 TABLET ORALLY DAILY, NOTES: 07/02/19 08 TAKING BUDESONIDE 0.5 MG/2ML SUSPENSION 2 ML INHALATION ONCE A DAY, NOTES: 07/03/19 08 TAKING PREDNISONE 20 MG TABLET DIRECTED ORALLY TAKE 2 TABS ONCE DAILY FOR 3 DAYS THEN 1 TAB ONCE DAILY FOR 5 DAYS, NOTES: MORE THAN 2 WEEKS AGO TAKING PULMICORT 0.5 MG/2ML SUSPENSION 2 ML INHALATION TWICE DAILY MIXED WITH SALINE AND USED A NASAL RINSE TAKING MELOXICAM 15 MG TABLET 1 TABLET ORALLY ONCE A DAY TAKING SINGULAIR 10 MG TABLET 1 TABLET IN THE EVENING ORALLY ONCE A DAY NOT-TAKING AMOXICILLIN-POT CLAVULANATE 875-125 MG TABLET 1 TABLET ORALLY EVERY 12 HRS NOT-TAKING KEFLEX 500 MG CAPSULE 1 CAPSULE ORALLY EVERY 12 HRS NOT-TAKING LEVAQUIN 500 MG TABLET 1 TABLET ORALLY ONCE A DAY NOT-TAKING CRANBERRY 425 MG CAPSULE 1 CAPSULE WITH MEALS ORALLY TWICE A DAY MEDICATION LIST REVIEWED AND RECONCILED WITH THE PATIENT PAST MEDICAL HISTORY ALLERGIC RHINITIS ASTHMA OSTEOPOROSIS RHEUMATOID ARTHRITIS HYPERCHOLESTEROLEMIA HISTORY OF ADENOMATOUS POLYP OF COLON DRY EYES ECTOPIC CARDIAC BEATS CHRONIC RECURRENT SINUSITIS ALLERGIES PROPOXYPHENE: PT UNAWARE - ALLERGY PRAVASTATIN: PT UNAWARE - ALLERGY CODEINE SULFATE: NAUSEA/VOMITING - ALLERGY SULFA (FOR ALLERGY USE ONLY): AFFECTS METHOTREXATE - ALLERGY BEE STINGS: ANAPHYLAXIS - ALLERGY MORPHINE SULFATE: NAUSEA/VOMITING - ALLERGY TRAMADOL HCL: NAUSEA/VOMITING - ALLERGY IV ANESTHESIA: NAUSEA/VOMITING - ALLERGY SURGICAL HISTORY BUNIONECTOMY 1985 RHEUMATOID NODULES REMOVED FROM HANDS, ARMS, AND FEET [phone] CESARIAN SECTION 1989 CERVICAL CERCLAGE 1989 SINUS SURGERY 1991 LEFT FOOT FUSION 1992 KNUCKLE REPLACEMENTS ON BOTH HANDS 1993 RIGHT SALPINGO-OOPHERECTOMY 2000 DEANGELO BULLOSA REMOVAL RIGHT SINUS 2002 LEFT THUMB TENDON SURGERY 2002 RIGHT FOOT SURGERY 2002 LEFT ANKLE SURGERY 01/2013 EYE LID SURGERY-DR. INGRAM 04/30/2015 COLONOSCOPY (ADENOMATOUS POLYP) AND EGD 12/2017 FAMILY HISTORY FATHER: MOTHER: ALIVE SIBLINGS: ALIVE, SISTER HAS CONGESTIVE HEART FAILURE PATERNAL GRAND MOTHER: , DIAGNOSED WITH OTHER MALIGNANT NEOPLASM OF UNSPECIFIED SITE IN BLADDER 6 SISTER(S) . 1 SON(S) - HEALTHY. FATHER AT AGE 56 OF AN [place]. MOTHER HAD HYPERTENSION. SIX SISTERS, ALIVE AND WELL. , ONEDIED AT , ONE HEALTHYMATERNAL UNCLES (2) RHEUMATOIDMOTHER HAD SKIN CANCER, UNSURE WHAT KINDNO FAMILY HX OF PANCREATIC CANCER. SOCIAL HISTORY GENERAL: TOBACCO USE ARE YOU A:NONSMOKER HIV / HEP-C SCREENING HIV TEST OFFERED TO PATIENT:YES DATE OFFERED:07/05/2017 TEST ACCEPTED:NO HEP-C TEST OFFERED TO PATIENT:YES DATE OFFERED:05/25/2016 REASON:PATIENT DECLINED TEST ACCEPTED:NO REASON:PATIENT DECLINED BROCHURE PROVIDED TO PATIENTYES HOUSING: OWNS HOME. EDUCATION LEVEL OF EDUCATION:COLLEGE LANGUAGE LANGUAGES SPOKEN:[place] DOMESTIC VIOLENCE STATUS: DO YOU FEEL SAFE IN YOUR ENVIRONMENT?YES BMI CARE GOAL FOLLOW-UP ABOVE NORMAL BMI FOLLOW-UPDIETARY MANAGEMENT EDUCATION, GUIDANCE, AND COUNSELING RECREATIONAL DRUG USE DRUG USE?NO LEARNING BARRIERS / SPECIAL NEEDS CHANGE FROM LAST VISIT?NO BARRIERS TO LEARNING?NO HEARING IMPAIRED?NO VISION IMPAIRED?YES COGNITIVELY IMPAIRED?NO :CORRECTIVE LENSES READINESS TO LEARN?YES LEARNING PREFERENCES?NO LEARNING CAPABILITIES PRESENT?YES EMOTIONAL BARRIERS?NO SPECIAL DEVICES?NO FINAL FINISHER FORGING DIES NEEDED?NO PAIN CLINIC PFS, CLERGY, PUBLIC HEALTH REFERRALS HAS THE PATIENT BEEN EDUCATED REGARDING HIS/HER PLAN OF CARE?YES HAS THE PATIENT BEEN EDUCATED REGARDING PAIN, THE RISK FOR PAIN, THE IMPORTANCE OF EFFECTIVE PAIN MANAGEMENT, AND THE PAIN ASSESSMENT PROCESS?YES LATEX QUESTIONNAIRE LATEX ALLERGY : HAVE YOU EVER DEVELOPED ANY TYPE OF REACTION AFTER HANDLING LATEX PRODUCTS SUCH RUBBER GLOVES, CONDOMS, DIAPHRAGMS, BALLOONS, SOCKS, OR UNDERWEAR?NO LATEX ALLERGY : HAVE YOU EVER DEVELOPED ANY TYPE OF REACTION DURING OR AFTER DENTAL APPOINTMENT, VAGINAL/RECTAL EXAMINATION, SURGICAL PROCEDURE, OR ANY OTHER EXPOSURE?NO DATE ASKED : 03/28/2019 LATEX RISK : HAVE YOU EVER HAD ANY DIFFICULTY BREATHING OR HIVES AFTER EATING OR HANDLING ANY FRUITS, OR VEGETABLES; SUCH KIWI, BANANAS, STONE FRUITS, OR CHESTNUTSNO LATEX RISK : DO YOU HAVE A PREVIOUS PERSONAL HISTORY OF MORE THAN NINE SURGERIES, SPINA BIFIDA, OR REPEATED CATHERIZATIONS? YES - PLEASE INDICATE : > 9 SURGERIES LATEX RISK : ARE YOU FREQUENTLY EXPOSED TO LATEX PRODUCTS IN YOUR OCCUPATION?NO CAFFEINE CAFFEINE USE?YES HOW OFTEN AND HOW MUCH? 2 CUPS OF COFFEE DAILY. ADVANCE DIRECTIVE ADVANCE DIRECTIVE DISCUSSED WITH PATIENT:YES PT HAS A HCP, -TAWANA SAMARITAN NO CONGREGATION BELIEFS THAT WOULD IMPACT HEALTH CARE. MARITAL STATUS: 1987. 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 SEXUAL HX HAD SEX IN THE LAST 12 MONTHS (VAGINAL, ORAL, OR ANAL)?NO HAVE YOU EVER HAD AN STD?NO PRE-CONSULT DONE 04/14/19. EMPRE PROCEDURE COMPLETED 04-27-19 MEDICATIONS CLARIFIED KGULLO. HOSPITALIZATION/MAJOR DIAGNOSTIC PROCEDURE FOR SURGERIES REVIEW OF SYSTEMS REVIEWED BY: PROVIDER: SADE SAMANIEGO-Toshia . CONSTITUTIONAL: ANY CHANGE IN YOUR MEDICAL CONDITION? NO . CHILLS NO . FEVER NO . INFECTION: DO YOU HAVE NEW INFECTIONS? NO . DO YOU HAVE HISTORY OF MRSA? NO . MUSCULOSKELETAL: ANY NEW PATTERNS OF PAIN OR NUMBNESS? NO . GASTROENTEROLOGY: ANY NEW CHANGE IN BOWEL CONTROL? NO . GENITOURINARY: ANY NEW CHANGE IN BLADDER CONTROL? NO . IS THERE A CHANCE YOU COULD BE ? NO . HEMATOLOGY/LYMPH: DO YOU TAKE ANY BLOOD THINNERS? (FOR EXAMPLE- COUMADIN, PLAVIX, AGGRENOX, PLATEL, PRADAXA, OR XARELTO) NO . WHEN WAS YOUR LAST DOSE? DATE: TIME: . NEUROLOGY: HAVE YOU FALLEN IN THE PAST 12 MONTHS? NO . ANY NEW EXTREMITY NUMBNESS OR WEAKNESS? NO . CARDIOLOGY: DO YOU HAVE A PACEMAKER OR DEFIBRILLATOR? NO . RESPIRATORY: HAVE YOU BEEN SICK IN THE PAST WEEK? NO . FEVER NO . FLU LIKE SYMPTOMS? NO . COUGH NO . INTEGUMENTARY: DO YOU HAVE ANY RASHES OR OPEN SORES? NO . ALLERGIC/IMMUNO: ARE YOU ALLERGIC TO IV DYE? NO . ANY NEW ALLERGIES? NO . PSYCHIATRIC: DO YOU HAVE THOUGHTS OF HURTING YOURSELF OR SOMEONE ELSE? NO . ARE YOU ABUSED, NEGLECTED, OR IN AN UNSAFE ENVIRONMENT? NO . ENDOCRINOLOGY: ARE YOU DIABETIC? NO . OTHER: DO YOU NEED ANY PRESCRIPTIONS? NO . IF YES, PLEASE LIST: ____ . ANY NEW PROBLEMS WITH YOUR MEDICATIONS? NO . WHEN DID YOU LAST EAT? ____ . WHEN DID YOU LAST DRINK? ____ . WHAT DID YOU LAST DRINK? ____ . NAME OF PERSON DRIVING YOU HOME? ____ . DO YOU HAVE ANY OTHER QUESTIONS OR CONCERNS NO . ASSESSMENTS INTERVERTEBRAL DISC DISORDERS WITH RADICULOPATHY, LUMBOSACRAL REGION - M51.17 (PRIMARY) TREATMENT INTERVERTEBRAL DISC DISORDERS WITH RADICULOPATHY, LUMBOSACRAL REGION CLINICAL NOTES: 68-YEAR-OLD FEMALE IN FOR POST [facility] FOLLOW-UP. GIVEN PRESENTING SYMPTOMS RECOMMEND FOLLOW-UP IN 2 MONTHS. PATIENT HAS EXPRESSED UNDERSTANDING OF AND WAS IN AGREEMENT WITH TREATMENT PLAN. GIVEN TIME TO ASK QUESTIONS AND EXPRESS CONCERNS.THIS VISIT TO BE BILLED BASED ON TIME SPENT WITH PATIENT. DISPOSITION & COMMUNICATION FOLLOW UP 2 MONTHS (REASON: BACK PAIN) ELECTRONICALLY SIGNED BY DANETTE MUHAMMAD ON 07/18/2019 AT 01:18 PM EDT DISCLAIMER : THIS IS A VISIT SUMMARY EXTRACTED FROM THE [facility] CHART. IT IS NOT A COPY OF THE [facility] PROGRESS NOTE. DAYDAY
== END ==
LOC: M PAIN 11:00
PROVIDERS: ATTEND Family Medicine
DX: M51.17 Intervertebral disc disorders with radiculopathy, lumbosacral region (principal); J45.909 Unspecified asthma, uncomplicated; M81.0 Age-related osteoporosis without current pathological fracture; M06.9 Rheumatoid arthritis, unspecified; E78.00 Pure hypercholesterolemia, unspecified; Z79.82 Long term (current) use of aspirin; Z79.1 Long term (current) use of non-steroidal anti-inflammatories (NSAID); Z79.899 Other long term (current) drug therapy; Z88.2 Allergy status to sulfonamides; Z88.5 Allergy status to narcotic agent; Z88.8 Allergy status to other drugs, medicaments and biological substances; Z91.030 Bee allergy status

== ENCOUNTER → 2019-08-01 | Outpatient (REF) | payer MEDICARE, BC, OTHER ==
[2019-08-01 17:58] LABS: APPEARANCE, URINE CLOUDY (CLEAR); BACTERIA, URINE AUTO 1+ (NEGATIVE); BILIRUBIN, URINE AUTO NEGATIVE (NEGATIVE); BLOOD, URINE BLOOD NEGATIVE (NEGATIVE); COLOR, URINE YELLOW (YELLOW); GLUCOSE, URINE (UA) AUTO NEGATIVE (NEGATIVE); KETONE, URINE AUTO NEGATIVE (NEGATIVE); LEUKOCYTE ESTERASE, URINE AUTO 3+ (NEGATIVE); MUCUS, URINE SMALL (NEGATIVE); NITRITE, URINE AUTO NEGATIVE (NEGATIVE); PROTEIN, URINE AUTO NEGATIVE (NEGATIVE); RBC, URINE AUTO 3 /HPF (0-3); SQUAMOUS EPITHELIAL CELL UR AU 0 /HPF (0-6); UROBILINOGEN, URINE AUTO 0.2 mg/dL (0.0-2.0); WBC, URINE AUTO TNTC /HPF (0-3)
== END ==
LOC: M SFHCCLAY 10:42
PROVIDERS: ATTEND Physician Assistant
DX: R30.0 Dysuria (principal)
CPT/HCPCS: 81001; 81002; 87088; 87186; G0463

== ENCOUNTER → 2019-09-15 | Outpatient (CLI) | payer MEDICARE, BC, OTHER ==
--- NOTE | 2019-09-19 05:49 | ECWPNPC ---
PATIENT NAME: SETH TOMAS : 1950 GENDER: FEMALE VISIT DATE: 09/15/2019 DISCHARGE DATE: 09/15/19926 VISIT LOCKED DATE TIME: PHYSICIAN: JAVID SCANLON RESOURCE: JAVID SCANLON REASON FOR APPOINTMENT 1. BACK PAIN TONG@[email or web address] PAT DONE HISTORY OF PRESENT ILLNESS GENERAL: - PERMISSION REQUESTED AND RECEIVED FROM PATIENT TO PERFORM TELEHEALTH VISIT. 68-YEAR-OLD FEMALE IN FOR CHRONIC PAIN FOLLOW-UP. SHE RATES HER PAIN CURRENTLY AT AN 8-9 OUT OF 10 AND DESCRIBES IT A THROBBING AND BURNING PAIN. FALL RISK SCREENING: SCREENING :NO FALLS REPORTED IN THE LAST YEAR PAIN SCREENING: PATIENT HAS A COMPLAINT OF ACUTE OR CHRONIC PAIN :YES LOCATION OF PAIN:LOW BACK INTENSITY OF PAIN (SCALE OF 1 TO 10):7 WHAT DOES YOUR PAIN FEEL LIKE:ACHING, CONTINOUS, THROBBING, SHOOTING DURATION:CONSTANT, ALL DAY PAIN IS INCREASED BY:OTHERS SITTING PAIN IS DECREASED BY:OTHERS NOTHING NURSING NOTE: -. PAIN CENTER INTAKE QUESTIONS: DO YOU HAVE A HISTORY OF MRSA? :NO DO YOU TAKE A BLOOD THINNERS? :NO DO YOU HAVE ANY BLEEDING DISORDERS? :NO ANY NEW NUMBNESS OR WEAKNESS IN YOUR LEGS OR ARMS? :NO ANY PACEMAKER,DEFIBRILLATOR, OR DORSAL COLUMN STIMULATOR? :NO DO YOU HAVE ANY RASHES OR OPEN SORES? :NO ARE YOU ALLERGIC TO IV DYE? :NO ARE YOU DIABETIC? :NO ANY NEW PROBLEMS WITH YOUR MEDICATIONS? :NO HAVE YOU RECEIVED A VACCINE IN THE PAST 30 DAYS? :NO DO YOU PLAN TO RECEIVE A VACCINE IN THE NEXT 21 DAYS? :NO DO YOU NEED ANY PRESCRIPTION? :NO DO YOU TAKE ANY IMMUNOSUPPRESSIVE MEDICATIONS? :YES XELJANZ, METHOTREXATE CURRENT MEDICATIONS TAKING ASPIRIN 81 MG TABLET DELAYED RELEASE 1 TABLET ORALLY ONCE A DAY TAKING VITAMIN D3 2000 UNIT CAPSULE 2 CAPSULE ORALLY ONCE A DAY TAKING FISH OIL 1000 MG CAPSULE 1 CAPSULE ORALLY ONCE A DAY TAKING FLAX SEED OIL 1000 MG CAPSULE 1 CAP ORALLY DAILY TAKING EPIPEN 0.3 MG/0.3ML (1:1000) DEVICE 1 INJECTION INTRAMUSCULAR DAILY NEEDED TAKING MELATONIN 5 MG TABLET 1-2 TABLET AT BEDTIME NEEDED WITH FOOD ORALLY ONCE A DAY TAKING XIIDRA 5 % SOLUTION 1 DROP INTO AFFECTED EYE OPHTHALMIC TWICE A DAY TAKING FLONASE 50 MCG/ACT SUSPENSION 2 SPRAYS IN EACH NOSTRIL NASALLY ONCE A DAY TAKING AREDS OTC 2 TAB ORALLY DAILY TAKING LIPITOR 80 MG TABLET 1 TABLET ORALLY ONCE A DAY TAKING METHOTREXATE 2.5 MG TABLET 7 TABS ORALLY ONCE A WEEK TAKING ATENOLOL 25 MG TABLET 1 TABLET ORALLY ONCE A DAY TAKING FOLIC ACID 1 MG TABLET 1 TABLET ORALLY ONCE A DAY TAKING OMEPRAZOLE 40 MG CAPSULE DELAYED RELEASE 1 CAPSULE ORALLY ONCE A DAY TAKING XELJANZ 10 MG TABLET 1 TABLET ORALLY DAILY TAKING CALCIUM 600 MG TABLET 2 TABS ORALLY ONCE A DAY TAKING ASCORBIC ACID 1000 MG TABLET 1 TABLET ORALLY DAILY TAKING BUDESONIDE 0.5 MG/2ML SUSPENSION 2 ML INHALATION ONCE A DAY TAKING PULMICORT 0.5 MG/2ML SUSPENSION 2 ML INHALATION TWICE DAILY MIXED WITH SALINE AND USED A NASAL RINSE TAKING MELOXICAM 15 MG TABLET 1 TABLET ORALLY ONCE A DAY TAKING SINGULAIR 10 MG TABLET 1 TABLET IN THE EVENING ORALLY ONCE A DAY TAKING ZINC 25 MG TABLET 1 TABLET ORALLY ONCE A DAY NOT-TAKING PREDNISONE 10 MG TABLET 1 TABLET ORALLY ONCE A DAY MEDICATION LIST REVIEWED AND RECONCILED WITH THE PATIENT PAST MEDICAL HISTORY ASTHMA OSTEOPOROSIS RHEUMATOID ARTHRITIS ALLERGIC RHINITIS HYPERCHOLESTEROLEMIA HISTORY OF ADENOMATOUS POLYP OF COLON DRY EYES ECTOPIC CARDIAC BEATS CHRONIC RECURRENT SINUSITIS ALLERGIES PROPOXYPHENE: PT UNAWARE - ALLERGY PRAVASTATIN: PT UNAWARE - ALLERGY CODEINE SULFATE: NAUSEA/VOMITING - ALLERGY SULFA (FOR ALLERGY USE ONLY): AFFECTS METHOTREXATE - ALLERGY BEE STINGS: ANAPHYLAXIS - ALLERGY MORPHINE SULFATE: NAUSEA/VOMITING - ALLERGY TRAMADOL HCL: NAUSEA/VOMITING - ALLERGY IV ANESTHESIA: NAUSEA/VOMITING - ALLERGY SURGICAL HISTORY BUNIONECTOMY 1985 RHEUMATOID NODULES REMOVED FROM HANDS, ARMS, AND FEET [id number] CESARIAN SECTION 1989 CERVICAL CERCLAGE 1989 SINUS SURGERY 1991 LEFT FOOT FUSION 1992 KNUCKLE REPLACEMENTS ON BOTH HANDS 1993 RIGHT SALPINGO-OOPHERECTOMY 1999 DEANGELO BULLOSA REMOVAL RIGHT SINUS 2002 LEFT THUMB TENDON SURGERY 2002 RIGHT FOOT SURGERY 2002 LEFT ANKLE SURGERY 01/2013 EYE LID SURGERY-DR. INGRAM 04/30/2015 COLONOSCOPY (ADENOMATOUS POLYP) AND EGD 12/2017 RIGHT EYE CATARACK 04/2019 FAMILY HISTORY FATHER: MOTHER: ALIVE SIBLINGS: ALIVE, SISTER HAS CONGESTIVE HEART FAILURE PATERNAL GRAND MOTHER: , DIAGNOSED WITH OTHER MALIGNANT NEOPLASM OF UNSPECIFIED SITE IN BLADDER 6 SISTER(S) . 1 SON(S) - HEALTHY. FATHER AT AGE 56 OF AN PA. MOTHER HAD HYPERTENSION. SIX SISTERS, ALIVE AND WELL. , ONEDIED AT , ONE HEALTHYMATERNAL UNCLES (2) RHEUMATOIDMOTHER HAD SKIN CANCER, UNSURE WHAT KINDNO FAMILY HX OF PANCREATIC CANCER. SOCIAL HISTORY GENERAL: TOBACCO USE ARE YOU A:NONSMOKER LATEX QUESTIONNAIRE LATEX ALLERGY : HAVE YOU EVER DEVELOPED ANY TYPE OF REACTION AFTER HANDLING LATEX PRODUCTS SUCH RUBBER GLOVES, CONDOMS, DIAPHRAGMS, BALLOONS, SOCKS, OR UNDERWEAR?NO LATEX ALLERGY : HAVE YOU EVER DEVELOPED ANY TYPE OF REACTION DURING OR AFTER DENTAL APPOINTMENT, VAGINAL/RECTAL EXAMINATION, SURGICAL PROCEDURE, OR ANY OTHER EXPOSURE?NO LATEX RISK : HAVE YOU EVER HAD ANY DIFFICULTY BREATHING OR HIVES AFTER EATING OR HANDLING ANY FRUITS, OR VEGETABLES; SUCH KIWI, BANANAS, STONE FRUITS, OR CHESTNUTSNO LATEX RISK : DO YOU HAVE A PREVIOUS PERSONAL HISTORY OF MORE THAN NINE SURGERIES, SPINA BIFIDA, OR REPEATED CATHERIZATIONS? YES - PLEASE INDICATE : > 9 SURGERIES LATEX RISK : ARE YOU FREQUENTLY EXPOSED TO LATEX PRODUCTS IN YOUR OCCUPATION?NO DATE ASKED : 09/14/2019 BMI CARE GOAL FOLLOW-UP ABOVE NORMAL BMI FOLLOW-UPDIETARY MANAGEMENT EDUCATION, GUIDANCE, AND COUNSELING ALCOHOL SCREENING DID YOU HAVE A DRINK CONTAINING ALCOHOL IN THE PAST YEAR?YES HOW OFTEN DID YOU HAVE SIX OR MORE DRINKS ON ONE OCCASION IN THE PAST YEAR?NEVER (0 POINTS) HOW MANY DRINKS DID YOU HAVE ON A TYPICAL DAY WHEN YOU WERE DRINKING IN THE PAST YEAR?1 OR 2 (0 POINTS) HOW OFTEN DID YOU HAVE A DRINK CONTAINING ALCOHOL IN THE PAST YEAR?TWO TO FOUR TIMES A MONTH (2 POINTS) POINTS2 INTERPRETATIONNEGATIVE RECREATIONAL DRUG USE DRUG USE?NO CAFFEINE CAFFEINE USE?YES HOW OFTEN AND HOW MUCH? 2 CUPS OF COFFEE DAILY. SEXUAL HX HAD SEX IN THE LAST 12 MONTHS (VAGINAL, ORAL, OR ANAL)?NO HAVE YOU EVER HAD AN STD?NO HIV / HEP-C SCREENING HIV TEST OFFERED TO PATIENT:YES DATE OFFERED:07/05/2017 TEST ACCEPTED:NO HEP-C TEST OFFERED TO PATIENT:YES DATE OFFERED:05/25/2016 REASON:PATIENT DECLINED TEST ACCEPTED:NO REASON:PATIENT DECLINED BROCHURE PROVIDED TO PATIENTYES VOODOO NO JEWISH BELIEFS THAT WOULD IMPACT HEALTH CARE. 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 DIET: REGULAR. MARITAL STATUS: 1987. PAIN CLINIC PFS, CLERGY, PUBLIC HEALTH REFERRALS WAS THE PROVIDER NOTIFIED OF ANY PERTINENT INFO?YES HAS THE PATIENT BEEN EDUCATED REGARDING HIS/HER PLAN OF CARE?YES HAS THE PATIENT BEEN EDUCATED REGARDING PAIN, THE RISK FOR PAIN, THE IMPORTANCE OF EFFECTIVE PAIN MANAGEMENT, AND THE PAIN ASSESSMENT PROCESS?YES HOUSING: OWNS HOME. ADVANCE DIRECTIVE ADVANCE DIRECTIVE DISCUSSED WITH PATIENT:YES PT HAS A HCP, -[facility]/MAJOR DIAGNOSTIC PROCEDURE FOR SURGERIES REVIEW OF SYSTEMS CONSTITUTIONAL: ANY RECENT FEVER OR ILLNESS NO . CHILLS NO . GASTROENTEROLOGY: BOWEL INCONTINENCE NO . ANY NEW CHANGE IN BOWEL CONTROL? NO . ABDOMINAL PAIN NO . CONSTIPATION NO . GENITOURINARY: ANY NEW CHANGE IN BLADDER CONTROL? NO . IS THERE A CHANCE YOU COULD BE ? NO . URINARY INCONTINENCE NO . CARDIOLOGY: CHEST PRESSURE NO . CHEST PAIN NO . RESPIRATORY: COUGH NO . SHORTNESS OF BREATH NO . EXAMINATION GENERAL EXAMINATION: GENERALNO ACUTE DISTRESS, WELL NOURISHED AND HYDRATED. PSYCHAPPROPRIATE MOOD AND AFFECT , ORIENTED X 3. ASSESSMENTS INTERVERTEBRAL DISC DISORDERS WITH RADICULOPATHY, LUMBOSACRAL REGION - M51.17 (PRIMARY) TREATMENT INTERVERTEBRAL DISC DISORDERS WITH RADICULOPATHY, LUMBOSACRAL REGION CLINICAL NOTES: 68-YEAR-OLD FEMALE IN FOR CHRONIC PAIN FOLLOW-UP. GIVEN PRESENTING SYMPTOMS RECOMMEND FOLLOW-UP IN CLINIC IN 3 WEEKS TO DISCUSS LESI. PATIENT HAS EXPRESSED UNDERSTANDING OF AND WAS IN AGREEMENT WITH TREATMENT PLAN. GIVEN TIME TO ASK QUESTIONS AND EXPRESS CONCERNS. TELEHEALTH VISIT CONDUCTED VIA ZOOM. TIME SPENT WITH PATIENT 7 MINUTES. OTHERS NOTES: UNABLE TO OBTAIN VITAL SIGNS DUE TO VIRTUAL VISIT, PT GIVES CONSENT FOR ACCESS TO RECORDS FOR VIRTUAL VISIT. DS . DISPOSITION & COMMUNICATION FOLLOW UP 3 WEEKS (REASON: BACK PAIN ) ELECTRONICALLY SIGNED BY DANETTE MUHAMMAD ON 09/18/2019 AT 08:21 AM EDT DISCLAIMER : THIS IS A VISIT SUMMARY EXTRACTED FROM THE [facility] CHART. IT IS NOT A COPY OF THE [facility] PROGRESS NOTE. DAYDAY
== END ==
LOC: M PAIN 09:00
PROVIDERS: ATTEND Family Medicine
DX: M51.17 Intervertebral disc disorders with radiculopathy, lumbosacral region (principal)

== ENCOUNTER → 2019-09-23 | Outpatient (CLI) | payer MEDICARE, BC, OTHER | LOC: M LABSMTC 10:58 | PROVIDERS: ATTEND Family Medicine | DX: Z03.818 Encounter for observation for suspected exposure to other biological agents ruled out (principal); Z11.59 Encounter for screening for other viral diseases | CPT/HCPCS: C9803; U0003 ==

== ENCOUNTER → 2019-12-07 | Outpatient (REF) | payer MEDICARE, BC, OTHER ==
[~2019-12-07] MED LIST changes: -MELA5TAB31 PO; +MELA5TAB36 PO
[2019-12-07 16:22] LABS: PLATELET COUNT, AUTOMATED 269 10^3/uL (150-450)
[2019-12-07 16:31] LABS: INR 0.88; PROTHROMBIN TIME 12.1 SECONDS (11.8-14.0)
[2019-12-07 16:32] LABS: PARTIAL THROMBOPLASTIN TIME 28.6 SECONDS (25.0-38.4)
[2019-12-07 17:02] LABS: COLLAGEN EPINEPHRINE 177 SECONDS (74-162)
[2019-12-07 18:26] LABS: COLLAGEN ADP 97 SECONDS (56-103)
== END ==
LOC: M LABDRAWC 15:51
PROVIDERS: ATTEND Physician Assistant
DX: M47.27 Other spondylosis with radiculopathy, lumbosacral region (principal); Z79.899 Other long term (current) drug therapy

== ENCOUNTER → 2020-02-26 | Outpatient (REF) | payer MEDICARE, BC, OTHER | LOC: M SFHCPLAZ 10:04 | PROVIDERS: ATTEND Physician Assistant | DX: R30.0 Dysuria (principal) | CPT/HCPCS: 81002; 87088; 87186; G0463 ==

== ENCOUNTER → 2020-02-28 | Outpatient (REF) | payer MEDICARE, BC, OTHER | LOC: M LAB REF 17:03 | PROVIDERS: ATTEND Dermatology | DX: D23.62 Other benign neoplasm of skin of left upper limb, including shoulder (principal); D23.21 Other benign neoplasm of skin of right ear and external auricular canal ==

== ENCOUNTER → 2020-03-04 | Outpatient (REF) | payer MEDICARE, BC, OTHER ==
[2020-03-04 17:05] LABS: INR 0.98; PROTHROMBIN TIME 13.2 SECONDS (12.5-14.3)
[2020-03-04 17:06] LABS: PARTIAL THROMBOPLASTIN TIME 29.5 SECONDS (24.2-38.5)
[2020-03-04 17:30] LABS: COLLAGEN EPINEPHRINE 212 SECONDS (74-162)
[2020-03-04 18:10] LABS: COLLAGEN ADP 76 SECONDS (56-103)
== END ==
LOC: M PLALAB 16:44
PROVIDERS: ATTEND Physical Medicine & Rehabilitation
DX: M47.22 Other spondylosis with radiculopathy, cervical region (principal); Z79.01 Long term (current) use of anticoagulants

== ENCOUNTER → 2020-03-13 | Outpatient (CLI) | payer MEDICARE, BC | LOC: M LABSMTC 12:18 | PROVIDERS: ATTEND Physical Medicine & Rehabilitation | DX: Z01.812 Encounter for preprocedural laboratory examination (principal); Z20.828 Contact with and (suspected) exposure to other viral communicable diseases ==

== ENCOUNTER → 2020-03-18 | Outpatient (CLI) | payer MEDICARE, BC ==
[2020-03-18 08:18] LABS: PLATELET COUNT, AUTOMATED 286 10^3/uL (150-450)
[2020-03-18 08:49] LABS: COLLAGEN EPINEPHRINE 95 SECONDS (74-162)
== END ==
LOC: M LAB 07:32
PROVIDERS: ATTEND Physical Medicine & Rehabilitation
DX: Z01.812 Encounter for preprocedural laboratory examination (principal); Z79.899 Other long term (current) drug therapy

== ENCOUNTER → 2020-04-02 | Outpatient (CLI) | payer MEDICARE, BC ==
[~2020-04-02] MED LIST changes: -MONT10TA4; +MONT5TAB2
--- NOTE | 2020-04-02 14:30 | REP ---
INDICATION: PAIN IN LEFT LEG. COMPARISON: Comparison study August 29, 2019.. TECHNIQUE: Left lower extremity duplex venous ultrasound. FINDINGS: The deep veins are anechoic and fully compressible from the groin to the popliteal fossa in the left lower extremity. Color flow imaging is homogeneous. Spectral Doppler interrogation demonstrates intact respiratory variation in flow and normal manual augmentation of flow. There is no evidence of deep vein thrombosis. IMPRESSION: Negative left lower extremity duplex venous ultrasound. No evidence of deep vein thrombosis. <Electronically signed by Clay Granda > 04/02/20 [id number]
== END ==
LOC: M RAD 13:57
PROVIDERS: ATTEND Physician Assistant
DX: M79.605 Pain in left leg (principal)

== ENCOUNTER → 2020-05-07 | Outpatient (REF) | payer MEDICARE, BC, OTHER ==
[2020-05-07 15:40] LABS: IRON (FE) 83 UG/DL (50-170); LDH LACTATE DEHYDROGENASE 283 U/L (84-246); TOTAL IRON BINDING CAPACITY 319 UG/DL (250-450)
[2020-05-07 17:42] LABS: FOLATE > 24.0 NG/ML; VITAMIN B12 LEVEL 336 PG/ML
== END ==
LOC: M SFHCPLAZ 11:53
PROVIDERS: ATTEND Internal Medicine
DX: D64.9 Anemia, unspecified (principal)
CPT/HCPCS: 36415; 82607; 82746; 83550; 83615; 85046; 86880; G0463

== ENCOUNTER → 2020-07-05 | Outpatient (REF) | payer MEDICARE, BC, OTHER ==
[~2020-07-05] MED LIST changes: +MONT10TA10; -MONT5TAB2
[2020-07-05 10:15] LABS: BASO % 0.5 % (0.0-1.0); EOS # 0.3 10^3/uL (0.0-0.5); EOS % 4.2 % (0.0-3.0); HEMATOCRIT 33.6 % (36.0-47.0); HEMOGLOBIN 10.7 g/dl (12.0-15.5); LYMPH # 1.1 10^3/uL (1.5-5.0); LYMPH % 17.6 % (24.0-44.0); MEAN CORPUSCULAR HEMOGLOBIN 32.4 pg (27.0-33.0); MEAN CORPUSCULAR HGB CONC 31.8 g/dl (32.0-36.5); MEAN CORPUSCULAR VOLUME 101.8 fl (80.0-96.0); MONO # 1.2 10^3/uL (0.0-0.8); NEUTROPHILS # 3.5 10^3/uL (1.5-8.5); NEUTROPHILS % 57.2 % (36.0-66.0); PLATELET COUNT, AUTOMATED 257 10^3/uL (150-450); WHITE BLOOD COUNT 6.1 10^3/uL (4.0-10.0)
== END ==
LOC: M PLALAB 08:03
PROVIDERS: ATTEND Internal Medicine
DX: E78.00 Pure hypercholesterolemia, unspecified (principal); D64.9 Anemia, unspecified

== ENCOUNTER → 2020-07-24 | Outpatient (REF) | payer MEDICARE, BC, OTHER | LOC: M LAB REF 19:15 | PROVIDERS: ATTEND Physician Assistant | DX: D04.39 Carcinoma in situ of skin of other parts of face (principal) | CPT/HCPCS: 11102; 17000; 88305; G0463 ==

== ENCOUNTER → 2020-07-25 | Outpatient (REF) | payer MEDICARE, BC, OTHER ==
[2020-07-25 14:03] LABS: BASO % 0.2 % (0.0-1.0); EOS # 0.2 10^3/uL (0.0-0.5); EOS % 2.2 % (0.0-3.0); HEMATOCRIT 33.1 % (36.0-47.0); HEMOGLOBIN 10.5 g/dl (12.0-15.5); LYMPH # 0.5 10^3/uL (1.5-5.0); LYMPH % 5.8 % (24.0-44.0); MEAN CORPUSCULAR HEMOGLOBIN 33.1 pg (27.0-33.0); MEAN CORPUSCULAR HGB CONC 31.7 g/dl (32.0-36.5); MEAN CORPUSCULAR VOLUME 104.4 fl (80.0-96.0); MONO # 1.5 10^3/uL (0.0-0.8); MONO % 17.2 % (2.0-8.0); NEUTROPHILS # 6.5 10^3/uL (1.5-8.5); NEUTROPHILS % 73.9 % (36.0-66.0); PLATELET COUNT, AUTOMATED 199 10^3/uL (150-450); RED BLOOD COUNT 3.17 10^6/uL (4.00-5.40)
[2020-07-25 14:34] LABS: WHITE BLOOD COUNT 8.8 10^3/uL (4.0-10.0)
== END ==
LOC: M SFHCPLAZ 09:09
PROVIDERS: ATTEND Nurse Practitioner Adult Health
DX: D64.9 Anemia, unspecified (principal); E78.00 Pure hypercholesterolemia, unspecified
CPT/HCPCS: 36415; 85025; G0463

== ENCOUNTER → 2020-09-09 | Outpatient (REF) | payer MEDICARE, BC, OTHER ==
[2020-09-09 18:21] LABS: BASO % 0.3 % (0.0-1.0); EOS # 0.1 10^3/uL (0.0-0.5); EOS % 1.5 % (0.0-3.0); HEMATOCRIT 31.4 % (36.0-47.0); HEMOGLOBIN 9.8 g/dl (12.0-15.5); LYMPH # 0.5 10^3/uL (1.5-5.0); LYMPH % 6.8 % (24.0-44.0); MEAN CORPUSCULAR HEMOGLOBIN 32.1 pg (27.0-33.0); MEAN CORPUSCULAR HGB CONC 31.2 g/dl (32.0-36.5); MONO # 0.7 10^3/uL (0.0-0.8); MONO % 10.2 % (2.0-8.0); NEUTROPHILS # 5.4 10^3/uL (1.5-8.5); NEUTROPHILS % 79.7 % (36.0-66.0); PLATELET COUNT, AUTOMATED 248 10^3/uL (150-450); RED BLOOD COUNT 3.05 10^6/uL (4.00-5.40); WHITE BLOOD COUNT 6.8 10^3/uL (4.0-10.0)
[2020-09-09 18:49] LABS: CHOLESTEROL LEVEL 183 MG/DL (<200); CHOLESTEROL RISK RATIO 3.452 (<5); HDL CHOLESTEROL 53 MG/DL (>40); LDL CHOLESTEROL 109 MG/DL (<100); NON-HDL-C 130 MG/DL; TOTAL PROTEIN 6.6 GM/DL (6.4-8.2); TRIGLYCERIDES LEVEL 103 MG/DL (<150)
[2020-09-11 15:01] LABS: ALBUMIN 4.06 GM/DL (3.29-5.55); ALBUMIN % 61.5 % (55.8-66.1); ALPHA-1-GLOBULIN % 3.6 % (2.9-4.9); ALPHA-1-GLOBULINS 0.24 GM/DL (0.17-0.41); ALPHA-2-GLOBULINS 0.88 GM/DL (0.42-0.99); ALPHA-2-GLOBULINS % 13.3 % (7.1-11.8); BETA-1-GLOBULINS 0.38 GM/DL (0.28-0.60); BETA-1-GLOBULINS % 5.8 % (4.7-7.2); BETA-2-GLOBULINS 0.31 GM/DL (0.19-0.55); BETA-2-GLOBULINS % 4.7 % (3.2-6.5); GAMMA GLOBULIN % 11.1 % (11.1-18.8); GAMMA GLOBULINS 0.73 GM/DL (0.65-1.58)
== END ==
LOC: M SFHCPLAZ 15:15
PROVIDERS: ATTEND Internal Medicine
DX: E78.00 Pure hypercholesterolemia, unspecified (principal); D64.9 Anemia, unspecified

== ENCOUNTER → 2020-09-09 | Outpatient (CLI) | payer MEDICARE, BC, OTHER ==
--- NOTE | 2020-09-09 16:48 | REPPI ---
INDICATION: M89.8X2 PAIN OF RIGHT HUMERUS COMPARISON: None. TECHNIQUE: AP and lateral views of the right humerus. FINDINGS: Osteopenia and age-related degenerative changes primarily involving the shoulder. No acute fracture or dislocation. IMPRESSION: Osteopenia and degenerative changes. No acute fracture or dislocation. <Electronically signed by Mando Workman > 09/09/20 [id number]
--- NOTE | 2020-09-09 16:49 | REPPI ---
INDICATION: M25.571 RIGHT ANKLE PAIN COMPARISON: None. TECHNIQUE: AP, lateral, bilateral oblique views right ankle. FINDINGS: Osteopenia and age-related degenerative changes are appreciated. Posttraumatic arthritic degenerative changes are also identified along with evidence for prior orthopedic fixation involving the talus, calcaneus, and 1st tarsometatarsal region. No evidence for acute fracture or dislocation. IMPRESSION: Arthritic and posttraumatic degenerative changes. No acute fracture or dislocation. <Electronically signed by Mando Workman > 09/09/20 [id number]
== END ==
LOC: M PLAIMG 15:36
PROVIDERS: ATTEND Internal Medicine
DX: M85.821 Other specified disorders of bone density and structure, right upper arm (principal); M85.871 Other specified disorders of bone density and structure, right ankle and foot; M25.571 Pain in right ankle and joints of right foot; M89.8X2 Other specified disorders of bone, upper arm; E78.00 Pure hypercholesterolemia, unspecified; D64.9 Anemia, unspecified
CPT/HCPCS: 36415; 73060; 73610; 80061; 82668; 84165; 85025; 85046; G0463

== ENCOUNTER → 2020-10-06 | Outpatient (CLI) | payer MEDICARE, BC, OTHER ==
[~2020-10-06] MED LIST changes: +OMEP40CA4 PO; -OMEP40CA97 PO
--- NOTE | 2020-10-06 13:10 | REPVR ---
PROCEDURE INFORMATION: Exam: MR Lumbar Spine Without Contrast Exam date and time: 10/06/2020 10:55 AM Age: 70 years old Clinical indication: Condition or disease; Spondylosis, lumbosacral; Lumbar region; Without myelopathy or radiculopathy; Patient HX: HX of ra; Additional info: Lumbar spondylosis TECHNIQUE: Imaging protocol: Multiplanar magnetic resonance images of the lumbar spine without intravenous contrast. COMPARISON: MRI-Spine, L.S. without con 01/28/2019 10:48 AM FINDINGS: Vertebrae: There is new mm of anterolisthesis of L4 upon L5. There is preservation of vertebral body height. Disc spaces: There is loss of T2 signal throughout the intervertebral disc spaces with loss of disc space height at L4-L5, findings related to degenerative disc disease. Spinal cord: Normal signal. No cord compression. The conus extends to L1. L1-L2: No significant disc disease. There are mild facet joint degenerative changes. No significant spinal canal stenosis. No neural foraminal stenosis. L2-L3: There is a small bulge without mass effect. There are mild facet joint degenerative changes. No significant spinal canal stenosis. No neural foraminal stenosis. L3-L4: There is a small bulge without mass effect. There are mild to moderate facet joint degenerative changes and ligament flavum hypertrophy. No significant spinal canal stenosis. No neural foraminal stenosis. L4-L5: There is a diffuse bulge with a leftward annular fissure. This extends to the L5 roots in the lateral recess but does not cause mass effect. There are severe facet joint degenerative changes and ligament flavum hypertrophy with borderline compromise of the central canal and narrowing the lateral recess bilaterally. No neural foraminal stenosis. L5-S1: There is a small bulge without mass effect. There are moderate to severe facet joint degenerative changes.. No significant spinal canal stenosis. No neural foraminal stenosis. Soft tissues: Unremarkable. IMPRESSION: There are degenerative changes throughout most focally at L4-L5 where there is a diffuse bulge which extends to the L5 roots associated with severe facet joint and changes resulting in borderline compromise of the central canal and narrowing the lateral recess bilaterally. Electronically signed by: You Chester On 10/06/2020 13:10:12 PM
== END ==
LOC: M RAD 09:55
PROVIDERS: ATTEND Physician Assistant
DX: M47.27 Other spondylosis with radiculopathy, lumbosacral region (principal)

== ENCOUNTER → 2020-12-19 | Outpatient (REF) | payer MEDICARE, BC, OTHER | LOC: M LAB REF 16:58 | PROVIDERS: ATTEND Dermatology | DX: L90.5 Scar conditions and fibrosis of skin (principal) | CPT/HCPCS: 87070; 87077; 87186; 87205; G0463 ==

== ENCOUNTER → 2021-03-18 | Outpatient (REF) | payer MEDICARE, BC, OTHER ==
[~2021-03-18] MED LIST changes: -MONT10TA10; +MONT10TA97
== END ==
LOC: M LAB REF 17:40
PROVIDERS: ATTEND Dermatology
DX: B07.9 Viral wart, unspecified (principal)
CPT/HCPCS: 11401; 12031; 88305; G0463

== ENCOUNTER → 2021-05-27 | Outpatient (CLI) | payer MEDICARE, BC, OTHER | LOC: M PLAIMG 09:39 | PROVIDERS: ATTEND Orthopaedic Surgery | DX: M50.30 Other cervical disc degeneration, unspecified cervical region (principal) ==

== ENCOUNTER → 2021-10-23 | Outpatient (CLI) | payer MEDICARE, BC, OTHER ==
[~2021-10-23] MED LIST changes: +CITRACAL MAXIMU1 TAB PO; -CITRTAB16 PO
[2021-10-23 15:17] LABS: BASO % 0.4 % (0.0-1.0); EOS # 0.2 10^3/uL (0.0-0.5); EOS % 1.9 % (0.0-3.0); HEMOGLOBIN 10.5 g/dl (12.0-15.5); LYMPH # 0.6 10^3/uL (1.5-5.0); LYMPH % 6.9 % (24.0-44.0); MEAN CORPUSCULAR HEMOGLOBIN 32.7 pg (27.0-33.0); MEAN CORPUSCULAR HGB CONC 31.8 g/dl (32.0-36.5); MEAN CORPUSCULAR VOLUME 102.8 fl (80.0-96.0); MONO # 1.4 10^3/uL (0.0-0.8); MONO % 16.6 % (2.0-8.0); NEUTROPHILS # 6.1 10^3/uL (1.5-8.5); NEUTROPHILS % 73.2 % (36.0-66.0); PLATELET COUNT, AUTOMATED 256 10^3/uL (150-450); RED BLOOD COUNT 3.21 10^6/uL (4.00-5.40); WHITE BLOOD COUNT 8.3 10^3/uL (4.0-10.0)
[2021-10-23 15:46] LABS: ALBUMIN 3.4 GM/DL (3.2-5.2); BILIRUBIN,TOTAL 0.7 MG/DL (0.2-1.0); CALCIUM LEVEL 9.4 MG/DL (8.8-10.2); CHOLESTEROL RISK RATIO 4.115 (<5); CREATININE FOR GFR 1.07 MG/DL (0.55-1.30); GLOMERULAR FILTRATION RATE 53.7 (>39); POTASSIUM SERUM 4.8 MEQ/L (3.5-5.1); TOTAL PROTEIN 6.4 GM/DL (6.4-8.2)
[2021-10-27 14:58] LABS: THYROID STIMULATING HORMONE 2.69 uIU/ML (0.358-3.740)
== END ==
LOC: M PLALAB 13:23
PROVIDERS: ATTEND Internal Medicine
DX: E78.00 Pure hypercholesterolemia, unspecified (principal); D64.9 Anemia, unspecified

== ENCOUNTER → 2021-10-27 | Outpatient (REF) | payer MEDICARE, BC, OTHER ==
[2021-10-27 18:38] LABS: APPEARANCE, URINE CLEAR (CLEAR); BACTERIA, URINE AUTO NEGATIVE (NEGATIVE); BILIRUBIN, URINE AUTO NEGATIVE (NEGATIVE); BLOOD, URINE BLOOD NEGATIVE (NEGATIVE); COLOR, URINE YELLOW (YELLOW); GLUCOSE, URINE (UA) AUTO NEGATIVE (NEGATIVE); KETONE, URINE AUTO NEGATIVE (NEGATIVE); LEUKOCYTE ESTERASE, URINE AUTO 1+ (NEGATIVE); NITRITE, URINE AUTO NEGATIVE (NEGATIVE); PROTEIN, URINE AUTO NEGATIVE (NEGATIVE); RBC, URINE AUTO 1 /HPF (0-3); SPECIFIC GRAVITY URINE AUTO 1.008 (1.002-1.035); SQUAMOUS EPITHELIAL CELL UR AU 1 /HPF (0-6); UROBILINOGEN, URINE AUTO 0.2 mg/dL (0.0-2.0); WBC, URINE AUTO 1 /HPF (0-3)
== END ==
LOC: M SFHCPLAZ 16:46
PROVIDERS: ATTEND Internal Medicine
DX: R30.0 Dysuria (principal); E78.00 Pure hypercholesterolemia, unspecified

== ENCOUNTER → 2022-01-20 | Outpatient (REF) | payer MEDICARE, BC, OTHER ==
[~2022-01-20] MED LIST changes: +FISH10005 PO; -FISH7.5C PO
[2022-01-21 14:25] LABS: ATYPICAL LYMPH 4 % (0-5); BASOPHILS 1 % (0-1); LYMPHOCYTES 6 % (16-44); MONOCYTES 7 % (0-5); NEUTROPHILS 82 % (28-66); NUCLEATED RED BLOOD CELL 1 % (0-0)
[2022-01-21 14:26] LABS: OVALOCYTES 1+; PLATELET ESTIMATE NORMAL (NORMAL)
== END ==
LOC: M LAB REF 12:08
PROVIDERS: ATTEND Internal Medicine
DX: J18.9 Pneumonia, unspecified organism (principal)

== ENCOUNTER → 2022-01-21 | Outpatient (CLI) | payer MEDICARE, BC, OTHER | LOC: M WUC 11:33 | PROVIDERS: ATTEND Internal Medicine | DX: J18.9 Pneumonia, unspecified organism (principal) ==

== ENCOUNTER 2022-03-14 18:44 | Observation (INO) | payer MEDICARE, BC, OTHER ==
[~2022-03-14] VITALS: Ht 162.6 cm; Wt 79.5 kg
[2022-03-14 19:27] LABS: BASO % 0.2 % (0.0-1.0); EOS % 0.4 % (0.0-3.0); HEMATOCRIT 30.2 % (36.0-47.0); HEMOGLOBIN 9.7 g/dl (12.0-15.5); LYMPH # 0.3 10^3/uL (1.5-5.0); LYMPH % 3.7 % (24.0-44.0); MEAN CORPUSCULAR HEMOGLOBIN 31.3 pg (27.0-33.0); MEAN CORPUSCULAR HGB CONC 32.1 g/dl (32.0-36.5); MEAN CORPUSCULAR VOLUME 97.4 fl (80.0-96.0); MONO # 0.6 10^3/uL (0.0-0.8); MONO % 6.8 % (2.0-8.0); NEUTROPHILS # 8.2 10^3/uL (1.5-8.5); NEUTROPHILS % 88.1 % (36.0-66.0); PLATELET COUNT, AUTOMATED 197 10^3/uL (150-450); WHITE BLOOD COUNT 9.3 10^3/uL (4.0-10.0)
[2022-03-14 19:28] LABS: VENOUS BASE EXCESS 0.6 (-2.0-2.0); VENOUS HCO3 25.4 MEQ/L (23.0-27.0); VENOUS O2 SATURATION 68.6 % (60.0-80.0); VENOUS PARTIAL PRESSURE CO2 41.8 mmHg (38.0-50.0); VENOUS PARTIAL PRESSURE O2 36.2 mmHg (30.0-50.0); VENOUS PH 7.402 UNITS (7.330-7.430); VENOUS STANDARD HCO3 24.4 MEQ/L; VENOUS TOTAL CO2 26.7 MEQ/L (24.0-28.0)
[2022-03-14] MEDS ORDERED: IBUPROFEN 600MG TAB PO ONE (19:50)
[2022-03-14 20:04] LABS: ALBUMIN 3.4 G/DL (3.2-5.2); ALT/SGPT 20 U/L (7.0-40); BILIRUBIN,DIRECT 0.4 MG/DL (<0.4); BILIRUBIN,TOTAL 1.4 MG/DL (0.3-1.2); BLOOD UREA NITROGEN 18 MG/DL (9-23); CALCIUM LEVEL 8.8 MG/DL (8.3-10.6); CARBON DIOXIDE LEVEL 25 MMOL/L (20-31); CHLORIDE LEVEL 99 MMOL/L (98-107); CREATININE FOR GFR 0.96 MG/DL (0.55-1.30); GLOMERULAR FILTRATION RATE > 60.0 (>39); GLUCOSE, FASTING 93 MG/DL (74-106); LIPASE 35 U/L (12-53); SODIUM LEVEL 136 MMOL/L (136-145); TOTAL PROTEIN 6.6 G/DL (5.7-8.2)
[2022-03-14 20:17] LABS: CK-MB VALUE MASS < 1.0 NG/ML (<3.6); CPK CREATINE PHOSPHOKINASE 106 U/L (34-145); MB/CK RELATIVE INDEX 0.94 (< OR =4)
[2022-03-14 21:26] LABS: CK-MB VALUE MASS < 1.0 NG/ML (<3.6); CPK CREATINE PHOSPHOKINASE 114 U/L (34-145); MB/CK RELATIVE INDEX 0.87 (< OR =4)
[2022-03-14] MEDS ORDERED: ACETAMINOPHEN TAB 650MG DOSE (2X325MG) PO ONE (22:20)
[2022-03-14] MEDS ORDERED: OMEG10005 PO (23:00)
[2022-03-14] MEDS ORDERED: ATOR80TA59 PO (23:00)
[2022-03-14] MEDS ORDERED: XELJ11TA PO (23:05)
[2022-03-14] MEDS ORDERED: B-12100010 PO (23:05)
[2022-03-14] MEDS ORDERED: MELO15TA28 PO (23:05)
[2022-03-14] MEDS ORDERED: XIID5DRO OU (23:05)
[2022-03-14] MEDS ORDERED: D200CAP3 PO (23:05)
[2022-03-14] MEDS ORDERED: IBUPROFEN 600MG TAB PO PRN (23:05)
[2022-03-14] MEDS ORDERED: COMBIVENT RESPIMAT 100-20MCG INHALER 4GM INH PRN (23:05)
[2022-03-14] MEDS ORDERED: CALC600C3 PO (23:05)
[2022-03-14] MEDS ORDERED: HOME MED LIST COMPLETE! XX SCH (23:05)
[2022-03-14] MEDS ORDERED: LR 1,000 ML IV ONE (23:05)
[2022-03-14] MEDS ORDERED: BENZONATATE 100MG CAPSULE PO PRN (23:05)
[2022-03-14] MEDS ORDERED: CVS1CAP2 PO (23:05)
[2022-03-14] MEDS ORDERED: CRAN400C PO (23:05)
[2022-03-14] MEDS ORDERED: PREG50CA2 PO (23:05)
[2022-03-14] MEDS ORDERED: ACETAMINOPHEN TAB 650MG DOSE (2X325MG) PO PRN (23:05)
[2022-03-14] MEDS ORDERED: OSELTAMIVIR PHOSPHATE 75 MG CAP (TAMIFLU) PO SCH (23:27)
[2022-03-15 01:07] VITALS: BP 154/76
[2022-03-15 06:00] VITALS: BP 117/72
[2022-03-15 06:14] LABS: HEMATOCRIT 27.6 % (36.0-47.0); MEAN CORPUSCULAR HEMOGLOBIN 31.7 pg (27.0-33.0); MEAN CORPUSCULAR HGB CONC 32.6 g/dl (32.0-36.5); MEAN CORPUSCULAR VOLUME 97.2 fl (80.0-96.0); PLATELET COUNT, AUTOMATED 173 10^3/uL (150-450); RED BLOOD COUNT 2.84 10^6/uL (4.00-5.40); WHITE BLOOD COUNT 6.3 10^3/uL (4.0-10.0)
[2022-03-15 06:26] LABS: INR 1.06
[2022-03-15 06:27] LABS: PARTIAL THROMBOPLASTIN TIME 25.5 SECONDS (24.8-34.2)
[2022-03-15 06:38] LABS: BLOOD UREA NITROGEN 18 MG/DL (9-23); CALCIUM LEVEL 8.8 MG/DL (8.3-10.6); CARBON DIOXIDE LEVEL 25 MMOL/L (20-31); CHLORIDE LEVEL 104 MMOL/L (98-107); CREATININE FOR GFR 0.93 MG/DL (0.55-1.30); GLOMERULAR FILTRATION RATE > 60.0 (>39); GLUCOSE, FASTING 97 MG/DL (74-106); POTASSIUM SERUM 4.1 MMOL/L (3.5-5.1); SODIUM LEVEL 140 MMOL/L (136-145)
[2022-03-15 08:41] VITALS: BP 146/76
[2022-03-15 08:42] VITALS: BP 146/76
[2022-03-15] MEDS ORDERED: atenoloL 25 MG TAB PO SCH (09:00)
[2022-03-15] MEDS ORDERED: PREGABALIN 50 MG CAP (LYRICA) PO SCH (09:00)
[2022-03-15] MEDS ORDERED: MELOXICAM (MOBIC) 7.5 MG TAB PO SCH (09:00)
[2022-03-15] MEDS ORDERED: OSELTAMIVIR PHOSPHATE 30MG CAPSULE PO SCH (09:00)
[2022-03-15] MEDS ORDERED: OSEL75CA PO (09:05)
[2022-03-15] MEDS ORDERED: MELO15TA28 PO (09:05)
[2022-03-15] MEDS ORDERED: BENZ-18 PO (09:06)
[2022-03-15] MEDS ORDERED: ATORVASTATIN 20 MG TAB PO SCH (21:00)
== END 2022-03-15 12:05 | disposition home or self-care (01) ==
LOC: M ED 18:44 → EDBD 18:44 → M ED INP 23:03 → M MSPAV 03-15 01:07
PROVIDERS: ADMIT Family Medicine; ATTEND Internal Medicine
DX: J10.1 Influenza due to other identified influenza virus with other respiratory manifestations (principal); R53.81 Other malaise; I67.82 Cerebral ischemia; R26.2 Difficulty in walking, not elsewhere classified; M35.00 Sjogren syndrome, unspecified; M06.9 Rheumatoid arthritis, unspecified; I10 Essential (primary) hypertension; E78.5 Hyperlipidemia, unspecified; Z86.16 Personal history of COVID-19; Z79.899 Other long term (current) drug therapy; Z88.5 Allergy status to narcotic agent; Z88.6 Allergy status to analgesic agent
CPT/HCPCS: 36415; 70450; 71045; 80048; 80076; 81002; 82550; 82553; 82803; 83605; 83690; 83735; 84484; 85025; 85027; 85610; 85730; 87040; 87486; 87581; 87633; 87798; 93005; 93041; 94760; 97161; 99285; G0378

== ENCOUNTER → 2022-07-29 | Outpatient (REF) | payer MEDICARE, BC, OTHER ==
[~2022-07-29] MED LIST changes: +ATOR80TA59 PO; +B-12100010 PO; +BENZ-18 PO; +CALC600C3 PO; +CRAN400C PO; +CVS1CAP2 PO; +D200CAP3 PO; +MELO15TA28 PO; +OMEG10005 PO; +OSEL75CA PO; +PREG50CA2 PO; +XELJ11TA PO; +XIID5DRO OU
== END ==
LOC: M LAB REF 12:37
PROVIDERS: ATTEND Family Medicine
DX: N39.0 Urinary tract infection, site not specified (principal)

== ENCOUNTER → 2022-08-06 | Outpatient (REF) | payer MEDICARE, BC, OTHER | LOC: M LAB REF 16:30 | PROVIDERS: ATTEND Internal Medicine | DX: R31.0 Gross hematuria (principal) ==

== ENCOUNTER → 2022-08-13 | Outpatient (REF) | payer MEDICARE, BC, OTHER | LOC: M LAB REF 16:53 | PROVIDERS: ATTEND Internal Medicine | DX: R31.0 Gross hematuria (principal) ==

== ENCOUNTER → 2022-11-02 | Outpatient (REF) | payer MEDICARE, BC, OTHER ==
[2022-11-02 14:28] LABS: PERCENT SATURATION 60.3 % (13.2-45.0)
[2022-11-02 14:29] LABS: FERRITIN 39.1 NG/ML (7.3-270.7)
== END ==
LOC: M LAB REF 13:52
PROVIDERS: ATTEND Internal Medicine
DX: D64.9 Anemia, unspecified (principal)

== ENCOUNTER → 2022-12-03 | Outpatient (REF) | payer MEDICARE, BC, OTHER ==
[2022-12-03 19:04] LABS: HEMATOCRIT 29.8 % (36.0-47.0); HEMOGLOBIN 9.3 g/dl (12.0-15.5); MEAN CORPUSCULAR HEMOGLOBIN 32.9 pg (27.0-33.0); MEAN CORPUSCULAR HGB CONC 31.2 g/dl (32.0-36.5); MEAN CORPUSCULAR VOLUME 105.3 fl (80.0-96.0); PLATELET COUNT, AUTOMATED 212 10^3/uL (150-450); RED BLOOD COUNT 2.83 10^6/uL (4.00-5.40); WHITE BLOOD COUNT 9.3 10^3/uL (4.0-10.0)
[2022-12-07 20:07] LABS: FREE KAPPA LIGHT CHAINS SERUM 30.3 mg/L (3.3-19.4); FREE LAMBDA LIGHT CHAINS SERUM 30.1 mg/L (5.7-26.3); KAPPA/LAMBDA RATIO SERUM 1.01 (0.26-1.65)
== END ==
LOC: M LAB REF 16:39
PROVIDERS: ATTEND Internal Medicine
DX: D64.9 Anemia, unspecified (principal); D72.829 Elevated white blood cell count, unspecified

== ENCOUNTER → 2023-01-06 | Outpatient (REF) | payer MEDICARE, BC, OTHER ==
[~2023-01-06] MED LIST changes: +BUDE0.5S6 INH; +EPIP0.3I2 IM; +FURO20TA2 PO; +MELA1TAB9 PO; +MONT10TA97 PO; +OMEP40CA5 PO; +ONDA-195 PO; +OYST500T92 PO; +PRED5TA PO; -PREG50CA2 PO; +PREG50CA3 PO; +RISATAB3 PO
[2023-01-06 16:48] LABS: APPEARANCE, URINE HAZY (CLEAR); BACTERIA, URINE AUTO NEGATIVE (NEGATIVE); BILIRUBIN, URINE AUTO NEGATIVE (NEGATIVE); BLOOD, URINE BLOOD NEGATIVE (NEGATIVE); COLOR, URINE YELLOW (YELLOW); GLUCOSE, URINE (UA) AUTO NEGATIVE (NEGATIVE); KETONE, URINE AUTO NEGATIVE (NEGATIVE); LEUKOCYTE ESTERASE, URINE AUTO NEGATIVE (NEGATIVE); MUCUS, URINE SMALL (NEGATIVE); NITRITE, URINE AUTO NEGATIVE (NEGATIVE); PROTEIN, URINE AUTO NEGATIVE (NEGATIVE); RBC, URINE AUTO 1 /HPF (0-3); SPECIFIC GRAVITY URINE AUTO 1.011 (1.002-1.035); SQUAMOUS EPITHELIAL CELL UR AU 1 /HPF (0-6); UROBILINOGEN, URINE AUTO 0.2 mg/dL (0.0-2.0); WBC, URINE AUTO 3 /HPF (0-3)
== END ==
LOC: M LAB REF 16:24
PROVIDERS: ATTEND Internal Medicine
DX: R10.9 Unspecified abdominal pain (principal); N17.9 Acute kidney failure, unspecified

== ENCOUNTER 2023-01-07 15:27 | Inpatient (IN) | payer MEDICARE, BC, OTHER ==
[~2023-01-07] VITALS: Ht 157.5 cm; Wt 78.2 kg
[~2023-01-07 15:27] MED LIST changes: -BUDE0.5S6 INH; -EPIP0.3I2 IM; -FURO20TA2 PO; -MELA1TAB9 PO; -MONT10TA97 PO; -OMEP40CA5 PO; -ONDA-195 PO; -OYST500T92 PO; -PRED5TA PO; -RISATAB3 PO
[2023-01-07 17:12] LABS: BASO % 0.5 % (0.0-1.0); EOS % 0.2 % (0.0-3.0); HEMOGLOBIN 7.8 g/dl (12.0-15.5); LYMPH # 0.2 10^3/uL (1.5-5.0); LYMPH % 5.2 % (24.0-44.0); MEAN CORPUSCULAR HGB CONC 32.5 g/dl (32.0-36.5); MEAN CORPUSCULAR VOLUME 98.4 fl (80.0-96.0); MONO # 0.2 10^3/uL (0.0-0.8); MONO % 5.4 % (2.0-8.0); NEUTROPHILS # 3.8 10^3/uL (1.5-8.5); NEUTROPHILS % 87.8 % (36.0-66.0); RED BLOOD COUNT 2.44 10^6/uL (4.00-5.40); WHITE BLOOD COUNT 4.3 10^3/uL (4.0-10.0)
[2023-01-07 17:35] LABS: ALBUMIN 2.3 G/DL (3.2-5.2); BILIRUBIN,DIRECT 0.4 MG/DL (<0.4); BILIRUBIN,TOTAL 0.9 MG/DL (0.3-1.2); CALCIUM LEVEL 8.8 MG/DL (8.3-10.6); CREATININE FOR GFR 1.58 MG/DL (0.55-1.30); GLOMERULAR FILTRATION RATE 34.1 (>39); POTASSIUM SERUM 4.5 MMOL/L (3.5-5.1); TOTAL PROTEIN 4.8 G/DL (5.7-8.2)
[2023-01-07 17:38] LABS: PLATELET COUNT, AUTOMATED 74 10^3/uL (150-450)
[2023-01-07] MEDS ORDERED: NS 500 ML IV ONE (18:35)
[2023-01-07] MEDS ORDERED: ISOVUE-370 76% 100ML VIAL As Ordered ONE (18:48)
[2023-01-07] MEDS ORDERED: MONT10TA97 PO (22:23)
[2023-01-07] MEDS ORDERED: FURO20TA2 PO (22:23)
[2023-01-07] MEDS ORDERED: ONDA-195 PO (22:23)
[2023-01-07] MEDS ORDERED: MELO15TA28 PO (22:23)
[2023-01-07] MEDS ORDERED: PRED5TA PO (22:23)
[2023-01-07] MEDS ORDERED: EPIP0.3I2 IM (22:23)
[2023-01-07] MEDS ORDERED: MELA1TAB9 PO (22:23)
[2023-01-07] MEDS ORDERED: RISATAB3 PO (22:23)
[2023-01-07] MEDS ORDERED: OYST500T92 PO (22:23)
[2023-01-07] MEDS ORDERED: BUDE0.5S6 INH (22:23)
[2023-01-07] MEDS ORDERED: OMEP40CA5 PO (22:23)
[2023-01-07 23:06] VITALS: BP 160/90; TEMP 98.2; O2SAT 92
[2023-01-07] MEDS ORDERED: HOME MED LIST COMPLETE! XX SCH (23:35)
[2023-01-08] VITALS (17 sets, daily range): BP systolic 109–154; BP diastolic 55–72; TEMP 97.3–103.5; O2SAT 91–99
[2023-01-08] MEDS ORDERED: ONDANSETRON 4MG TAB PO PRN (00:20)
[2023-01-08] MEDS ORDERED: LACTOBACILLUS ACIDOPHILUS CAP (BACID) PO PRN (00:20)
[2023-01-08] MEDS: NS 1,000 ML IV SCH ×2 (00:44→14:13)
[2023-01-08] MEDS: PREGABALIN 50 MG CAP (LYRICA) PO SCH ×3 (00:44→21:18)
[2023-01-08] MEDS: MONTELUKAST 10 MG TAB PO SCH ×2 (00:44→21:18)
[2023-01-08] MEDS: ACETAMINOPHEN TAB 650MG DOSE (2X325MG) PO PRN ×2 (05:45→18:27)
[2023-01-08] MEDS: BUDESONIDE 0.5 MG/2 ML INHALATION SUSPENSION INH SCH ×2 (07:22→20:14)
[2023-01-08 07:37] LABS: HEMATOCRIT 21.5 % (36.0-47.0); MEAN CORPUSCULAR HEMOGLOBIN 31.2 pg (27.0-33.0); MEAN CORPUSCULAR HGB CONC 32.1 g/dl (32.0-36.5); MEAN CORPUSCULAR VOLUME 97.3 fl (80.0-96.0); RED BLOOD COUNT 2.21 10^6/uL (4.00-5.40)
[2023-01-08 07:41] LABS: HEMOGLOBIN 6.9 g/dl (12.0-15.5); PLATELET COUNT, AUTOMATED 54 10^3/uL (150-450)
[2023-01-08 08:00] LABS: ALBUMIN 2.1 G/DL (3.2-5.2); BILIRUBIN,TOTAL 0.9 MG/DL (0.3-1.2); CALCIUM LEVEL 8.1 MG/DL (8.3-10.6); CREATININE FOR GFR 1.36 MG/DL (0.55-1.30); GLOMERULAR FILTRATION RATE 40.6 (>39); MAGNESIUM LEVEL 1.7 MG/DL (1.8-2.4); POTASSIUM SERUM 4.1 MMOL/L (3.5-5.1); TOTAL PROTEIN 4.4 G/DL (5.7-8.2)
[2023-01-08 08:02] LABS: FERRITIN 445.7 NG/ML (7.3-270.7)
[2023-01-08] MEDS ORDERED: atenoloL 25 MG TAB PO SCH (09:00)
[2023-01-08] MEDS ORDERED: LIFITEGRAST 5% OU SCH (09:00)
[2023-01-08] MEDS ORDERED: CALCIUM/VITAMIN D 500 MG TAB PO SCH (09:00)
[2023-01-08] MEDS ORDERED: OMEPRAZOLE 20MG CAP PO SCH (09:00)
[2023-01-08] MEDS ORDERED: FOLIC ACID 1MG TAB PO SCH (09:00)
[2023-01-08] MEDS ORDERED: VITAMIN D 1,000 INTERNATIONAL UNITS TABLET PO SCH (09:00)
[2023-01-08] MEDS ORDERED: CYANOCOBALAMIN 500 MCG TAB PO SCH (09:00)
[2023-01-08] MEDS ORDERED: BISACODYL 10MG SUPP PR SCH (09:00)
[2023-01-08] MEDS ORDERED: MAGNESIUM OXIDE 400MG TAB (MAG-OX) PO ONE (09:30)
[2023-01-08 11:09] LABS: FOLATE 21.37 NG/ML (>5.4)
[2023-01-08 11:59] LABS: PERCENT SATURATION 29.1 % (13.2-45.0)
[2023-01-08 12:07] LABS: PROCALCITONIN 0.22 ng/ml
[2023-01-08] MEDS: SENOKOT S TAB PO SCH ×2 (12:41→21:18)
[2023-01-08 18:06] LABS: HEMATOCRIT 33.2 % (36.0-47.0); HEMOGLOBIN 10.9 g/dl (12.0-15.5)
[2023-01-08 19:01] LABS: HIV 1&2 SCREEN NEGATIVE (NEGATIVE)
[2023-01-08 19:07] LABS: HEPATITIS B CORE ANTIBODY IGM NEGATIVE (NEGATIVE)
[2023-01-08 19:08] LABS: HEPATITIS C VIRUS ABY INDEX 0.07 INDEX (<0.8)
[2023-01-08 20:53] LABS: INR 1.16; PROTHROMBIN TIME 14.5 SECONDS (12.5-14.5)
[2023-01-08] MEDS ORDERED: ATORVASTATIN 20 MG TAB PO SCH (21:00)
[2023-01-09] MEDS ORDERED: UNRESOLVED PATIENT OWN MED ORDER XX SCH (00:01)
[2023-01-09 16:10] LABS: HAPTOGLOBIN 56 mg/dL (42-346)
== END 2023-01-08 22:18 | disposition short-term general hospital (02) | DRG 809 ==
LOC: M ED 15:27 → M ED INP 22:15 → M MS4PR 23:05 → M MS5PR 01-08 17:00 → M PCU 01-08 19:38
PROVIDERS: ADMIT Internal Medicine; ATTEND Internal Medicine
PROC: 30233N1 Transfusion of Nonautologous Red Blood Cells into Peripheral Vein, Percutaneous Approach (ICD-10-PCS; principal; 2023-01-08)
DX: D61.818 Other pancytopenia (principal); N17.9 Acute kidney failure, unspecified; M06.9 Rheumatoid arthritis, unspecified; M35.00 Sjogren syndrome, unspecified; I10 Essential (primary) hypertension; E78.5 Hyperlipidemia, unspecified; R53.1 Weakness; K59.00 Constipation, unspecified; R74.01 Elevation of levels of liver transaminase levels; G89.29 Other chronic pain; R63.4 Abnormal weight loss; Z85.828 Personal history of other malignant neoplasm of skin; R53.83 Other fatigue; R41.0 Disorientation, unspecified; G62.9 Polyneuropathy, unspecified; K21.9 Gastro-esophageal reflux disease without esophagitis; R10.9 Unspecified abdominal pain; D69.49 Other primary thrombocytopenia; Z79.899 Other long term (current) drug therapy; Z88.6 Allergy status to analgesic agent; Z88.5 Allergy status to narcotic agent; Z91.030 Bee allergy status